=== PATIENT | male | born 1965 | race Caucasian/White ===

== ENCOUNTER 2017-05-07 12:09 | Emergency (ER) | payer MEDICAID ==
[2017-05-07 12:20] VITALS: BP 144/82; PULSE 83; RESP 18; TEMP 97.6
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
[2017-05-07 13:53] LABS: Appearance,Urine Cloudy (Clear); Bacteria,Urine Rare /hpf; Bilirubin,Urine Negative (Negative); Glucose,Urine (UA) Negative (Negative); Ketones,Urine Negative (Negative); Leukocyte Esterase,Urine Negative (Negative); Mucus,Urine Many /hpf; Nitrite,Urine Negative (Negative); Particle Count 11492; Protein,Urine Negative (Negative); RBC,Urine >182 /hpf (0-5); Specific Gravity,Urine 1.012 (1.001-1.035); UA Billing (MACRO vs. MICRO) MICRO; Uric Acid Crystals,Urine Occasional /hpf; WBC,Urine 38 /hpf (0-5)
[2017-05-07 14:05] LABS: INR 1.3 (<1.2); Partial Thromboplastin Time 25.8 sec (22.0-30.0); Prothrombin Time 12.5 sec (9.0-12.0)
[2017-05-07 14:07] LABS: Calcium 9.5 mg/dL (8.4-10.2); Potassium 4.6 mmol/L (3.5-5.1); Total Bilirubin 3.1 mg/dL (0.2-1.3); Total Protein 8.2 g/dL (6.3-8.2)
--- NOTE | 2017-05-07 14:12 | CT ---
EXAMINATION TYPE: CT abdomen pelvis wo con DATE OF EXAM: 05/07/2017 COMPARISON: 03/17/2016 HISTORY: hematuria, stone history CT DLP: 1167 mGycm Automated exposure control for dose reduction was used. TECHNIQUE: Helical acquisition of images was performed from the lung bases through the pelvis. FINDINGS: LUNG BASES: Subsegmental consolidation at both lung bases most atelectasis. LIVER/GB: Gallbladder appears distended measures 9 cm with no definite calcifications. Correlate clin ically. Liver extends across the left abdomen and superior to the spleen and is somewhat hypoattenuat ing suggestive of fatty infiltration. PANCREAS: No significant abnormality is seen. SPLEEN: Calcification along the peripheral remnant of the upper margin of the spleen.. ADRENALS: No significant abnormality is seen. KIDNEYS: Stable solid exophytic lesion interpolar region left kidney measures 1.4 cm versus 1.4 cm pr eviously. Hounsfield unit measurement is hyperdense no additional solid renal lesions identified. Sub centimeter right renal cysts noted totaling approximately 3 in number. No hydronephrosis. 2 mm nonobs tructing calculus lower pole right kidney. There also is a larger infundibular calcification involvin g the lower pole measuring 1 cm. Urinary bladder grossly unremarkable. URINARY BLADDER: No significant abnormality is seen. ADENOPATHY: None visualized. OSSEOUS STRUCTURES: No significant abnormality is seen. BOWEL: Degenerative change of the spine. OTHER: Fat-containing inguinal hernias are seen bilaterally. Aorta of normal caliber with atheroscler otic changes. IMPRESSION: 1. There is a 1.4 cm hyperdense lesion extending exophytically off the left kidney stable size relati ve the previous exam. May represent hemorrhagic cyst. Other etiologies including solid neoplasm not e xcluded by noncontrast technique. 2. Right-sided nonobstructing nephrolithiasis. 3. Gallbladder hydrops measuring 9 cm with no definite stone or biliary obstruction. Correlate clinic ally. 4. Liver is prominent in size but stable and findings suggestive of fatty infiltration. Correlate cli nically.
[2017-05-07 14:15] LABS: Basophils # (A) 0.1 k/uL (0-0.2); Basophils % (A) 1 %; CH 32.5; CHCM 32.2; Eosinophils # (A) 0.1 k/uL (0-0.7); Eosinophils % (A) 2 %; HCT 45.4 % (39.0-53.0); HDW 2.02; HGB 14.3 gm/dL (13.0-17.5); Luc # (Auto) 0.15; Luc % (Auto) 2; Lymphocytes # (A) 1.3 k/uL (1.0-4.8); Lymphocytes % (A) 20 %; MCH 31.9 pg (25.0-35.0); MCHC 31.4 g/dL (31.0-37.0); MCV 101.6 fL (80.0-100.0); Macrocytosis Slight; Mean Platelet Volume 8.3; Monocytes # (A) 0.4 k/uL (0-1.0); Monocytes % (A) 6 %; Neutrophils # (A) 4.5 k/uL (1.3-7.7); Neutrophils % (A) 69 %; RBC 4.46 m/uL (4.30-5.90); WBC 6.5 k/uL (3.8-10.6); WBC (Perox) 6.14
== END 2017-05-07 15:10 | disposition home or self-care (01) ==
LOC: EC 12:09
DX: N28.9 Disorder of kidney and ureter, unspecified (principal); R31.9 Hematuria, unspecified; R10.31 Right lower quadrant pain; E11.9 Type 2 diabetes mellitus without complications; I10 Essential (primary) hypertension; F17.200 Nicotine dependence, unspecified, uncomplicated; Z79.84 Long term (current) use of oral hypoglycemic drugs; Z79.899 Other long term (current) drug therapy
CPT/HCPCS: 36415; 74176; 80053; 81001; 82150; 83690; 85025; 85610; 85730; 87086; 99284

== ENCOUNTER → 2017-06-15 | Outpatient (CLI) | payer MEDICAID ==
--- NOTE | 2017-06-15 15:44 | US ---
EXAMINATION TYPE: US gallbladder DATE OF EXAM: 06/15/2017 COMPARISON: CT CLINICAL HISTORY: R94.5 Elevated Liver Enzymes. Elevated liver enzymes, history of kidney stones EXAM MEASUREMENTS: Liver Length: 17.4 cm Gallbladder Wall: 0.3 cm CBD: 0.4 cm Right Kidney: 11.8 x 6.0 x 6.3 cm Pancreas: obscured by overlying midline bowel gas Liver: measures in upper limits of normal at 17.4cm, heterogeneous without any definite lesions seen at this time, scanned intercostally, limited by rib shadowing . This finding limits evaluation for u nderlying hepatic masses. Gallbladder: Enlarged but anechoic measuring at least 13.1cm Evidence for sonographic Cates's sign: no CBD: wnl Right Kidney: 1.0cm echogenic focus inferior pole IMPRESSION: 1. Hydropic gallbladder measuring at least 13.1 cm. HIDA scan with CCK is recommended to evaluate for acute cholecystitis, chronic cholecystitis, or biliary dyskinesia. Bile duct is within normal limits at this time with no evidence of pericholecystic fluid or gallbladder wall thickening to support cur rent acute cholecystitis. 2. Coarsened hyperechoic hepatic echotexture, most commonly relating to hepatic steatosis, at least m oderate in degree.
== END | disposition home or self-care (01) ==
LOC: RADUSWWP 14:36
PROVIDERS: ATTEND Surgery
DX: R93.2 Abnormal findings on diagnostic imaging of liver and biliary tract (principal)
CPT/HCPCS: 76705

== ENCOUNTER 2017-09-26 11:32 | Inpatient (IN) | payer MEDICAID ==
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
--- NOTE | 2017-09-26 12:08 | XR ---
EXAMINATION TYPE: XR chest 2V DATE OF EXAM: 09/26/2017 COMPARISON: 09/06/2017 HISTORY: Shortness of breath TECHNIQUE: Frontal and lateral views of the chest are obtained. FINDINGS: Scattered senescent parenchymal changes noted. Hyperinflation compatible with COPD. Stable right lower lobe density. This may reflect atelectasis, scar or infiltrate. Continued follow-u p until resolution is advised. Heart size is stable. Mediastinal structures are stable and grossly unremarkable. No evidence for hilar prominence. Degenerative changes dorsal spine. IMPRESSION: 1. Stable right lower lobe density. This may reflect atelectasis, scar or infiltrate. Continued follo w-up until resolution is advised.
[2017-09-26 12:17] LABS: Albumin 2.9 g/dL (3.5-5.0); Calcium 8.5 mg/dL (8.4-10.2); Magnesium 2.2 mg/dL (1.6-2.3)
[2017-09-26 12:40] LABS: Anisocytosis Slight; Basophils # (A) 0.1 k/uL (0-0.2); Basophils % (A) 0 %; Eosinophils # (A) 0.1 k/uL (0-0.7); Eosinophils % (A) 1 %; HCT 45.9 % (39.0-53.0); HGB 15.1 gm/dL (13.0-17.5); Lymphocytes # (A) 0.3 k/uL (1.0-4.8); Lymphocytes % (A) 2 %; MCV 93.9 fL (80.0-100.0); Monocytes # (A) 0.6 k/uL (0-1.0); Monocytes % (A) 4 %; Neutrophils # (A) 13.3 k/uL (1.3-7.7); Neutrophils % (A) 92 %; RBC 4.88 m/uL (4.30-5.90); RDW 17.6 % (11.5-15.5); WBC 14.5 k/uL (3.8-10.6)
[2017-09-26 12:50] LABS: Target Cells Present
[2017-09-26 12:51] LABS: Platelet Count 95 k/uL (150-450); Poikilocytosis (M) Present
[2017-09-26 12:55] LABS: Total Bilirubin 37.6 mg/dL (0.2-1.3)
[2017-09-26 12:56] LABS: INR 2.1 (<1.2); Partial Thromboplastin Time 35.8 sec (22.0-30.0); Prothrombin Time 19.1 sec (9.0-12.0)
[2017-09-26 13:18] LABS: Appearance,Urine Clear (Clear); Bacteria,Urine Occasional /hpf; Bilirubin,Urine 3+ (Negative); Blood,Urine Moderate (Negative); Color,Urine Dark Yellow; Glucose,Urine (UA) Negative (Negative); Ketones,Urine Negative (Negative); Leukocyte Esterase,Urine Negative (Negative); Mucus,Urine Rare /hpf; Nitrite,Urine Negative (Negative); Protein,Urine Negative (Negative); RBC,Urine 1 /hpf (0-5); Specific Gravity,Urine 1.007 (1.001-1.035); Urobilinogen,Urine <2.0 mg/dL (<2.0); WBC,Urine 26 /hpf (0-5)
[2017-09-26] MEDS ORDERED: MORPHINE SULFATE 5 MG/ML SYRINGE IV PRN (13:27)
[2017-09-26] MEDS ORDERED: ONDANSETRON 4 MG/2 ML VIAL IVP PRN (13:27)
[2017-09-26] MEDS ORDERED: NALOXONE 0.4 MG/ML 1 ML VIAL IV PRN (13:27)
[2017-09-26] MEDS ORDERED: POTASSIUM CHLORIDE ORAL LIQUID 40 MEQ/30 ML CUP PO ONE (13:30)
[2017-09-26] MEDS ORDERED: PHYTONADIONE 10 MG in SODIUM CHLORIDE 0.9% 50 ML IVPB STA (16:55)
[2017-09-26] MEDS ORDERED: SODIUM CHLORIDE 0.9% 500 ML IV ONE (16:56)
--- NOTE | 2017-09-26 17:08 | P.HPIM ---
History of Present Illness Patient is a 52-year-old gentleman with came in with compensative generalized weakness and gurgling cough chest x-ray did not show any pneumonic process did show atelectasis. Patient denied any fever chills patient was having's some similar symptoms consistent with ALLERGIC sinusitis. Patient is being admitted today because of acute renal dysfunction patient has alcoholic cirrhosis patient was recently discharged from the hospital around [facility] after he was treated for acute alcoholic hepatitis was discharged on Lasix comes with elevated creatinine going up to around 4.5 baseline during his last discharge was around 2 patient does have distended abdomen much more worse patient has highly elevated bilirubin of 36 with elevated liver enzymes. Patient is hyponatremic as well secondary to severe intravascular depletion third spacing of fluids. Patient will need therapy paracentesis INR is around 2 we'll give him fresh frozen plasma vitamin K order ultrasound guided paracentesis tomorrow and patient will be given IV fluids in spite of for ascites because of severe intravascular volume depletion and prerenal azotemia, hypokalemia. Diuretics will be held Review of Systems REVIEW OF SYSTEMS: CONSTITUTIONAL: Severe generalized fatigue HEENT: No recent visual problems or hearing problems. Denied any sore throat. CARDIOVASCULAR: No chest pain, orthopnea, PND, no palpitations, no syncope. PULMONARY: No shortness of breath,, no hemoptysis. GASTROINTESTINAL: No diarrhea, no nausea, no vomiting, no abdominal pain. Normoactive bowel sounds. NEUROLOGICAL: No headaches, no weakness, no numbness. HEMATOLOGICAL: Denies any bleeding or petechiae. GENITOURINARY: Denies any burning micturition, frequency, or urgency. MUSCULOSKELETAL/RHEUMATOLOGICAL: Denies any joint pain, swelling, or any muscle pain. ENDOCRINE: Denies any polyuria or polydipsia. The rest of the 14-point review of systems is negative. Past Medical History Past Medical History: Cancer, Diabetes Mellitus, GERD/Reflux, Hypertension, Liver Disease, Osteoarthritis (OA), Pneumonia, Renal Disease Additional Past Medical History / Comment(s): Liver failure/ascities, ETOH abuse , R kidney cancer with tumor removal, NIDDM type II-currently off diabetic medication d/t liver failure, past splen laceration. History of Any Multi-Drug Resistant Organisms: None Reported Past Surgical History: Orthopedic Surgery Additional Past Surgical History / Comment(s): rt kidney tumor, lleft knee acl tear sx Past Anesthesia/Blood Transfusion Reactions: No Reported Reaction Smoking Status: Former smoker - Past Family History Father Family Medical History: Diabetes Mellitus, Hypertension Mother Family Medical History: Hypertension Medications and Allergies Home Medications Medication Instructions Recorded Confirmed Type Furosemide [Lasix] 40 mg PO BID #60 tablet 09/09/17 09/26/17 Rx Potassium Chloride ER [K-Dur 20] 20 meq PO DAILY #30 tab 09/09/17 09/26/17 Rx HYDROmorphone HCL [Dilaudid] 4 mg PO Q4H PRN 09/26/17 09/26/17 History Allergies Allergy/AdvReac Type Severity Reaction Status Date / Time No Known Allergies Allergy Verified 09/26/17 13:03 Physical Exam Vitals: Vital Signs Temp Pulse Resp BP Pulse Ox 09/26/17 15:20 91 20 122/58 99 09/26/17 13:50 101 H 22 148/95 96 09/26/17 12:57 95 18 155/77 94 L 09/26/17 11:46 97.8 F 96 18 144/75 95 Intake and Output 09/26/17 09/26/17 09/26/17 06:59 14:59 22:59 Other: Weight 108.862 kg Patient Weight 09/27/17 06:59 Weight 108.862 kg PHYSICAL EXAMINATION: GENERAL: The patient is alert and oriented x3, not in any acute distress. Well developed, well nourished. Yellowish discoloration of skin HEENT: Pupils are round and equally reacting to light. EOMI. patient does have scleral icterus. No conjunctival pallor. Normocephalic, atraumatic. No pharyngeal erythema. No thyromegaly. CARDIOVASCULAR: S1 and S2 present. No murmurs, rubs, or gallops. PULMONARY: Chest is clear to auscultation, no wheezing or crackles. ABDOMEN: Distended with shifting dullness without any abdominal tenderness unable to appreciate any organomegaly MUSCULOSKELETAL: No joint swelling or deformity. EXTREMITIES: No cyanosis, clubbing, or pedal edema. NEUROLOGICAL: Gross neurological examination did not reveal any focal deficits. SKIN: No rashes. Results CBC & Chem 7: 09/26/17 11:40 09/26/17 11:40 Labs: Abnormal Lab Results - Last 24 Hours (Table) 09/26/17 09/26/17 09/26/17 Range/Units 11:40 11:40 11:40 WBC 14.5 H (3.8-10.6) k/uL RDW 17.6 H (11.5-15.5) % Plt Count 95 L D (150-450) k/uL Neutrophils # 13.3 H (1.3-7.7) k/uL Lymphocytes # 0.3 L (1.0-4.8) k/uL PT 19.1 H (9.0-12.0) sec INR 2.1 H (<1.2) APTT 35.8 H (22.0-30.0) sec Sodium 131 L (137-145) mmol/L Potassium 3.0 L* (3.5-5.1) mmol/L Chloride 89 L (98-107) mmol/L BUN 123 H* (9-20) mg/dL Creatinine 4.13 H (0.66-1.25) mg/dL Glucose 190 H (74-99) mg/dL Total Bilirubin 37.6 H* (0.2-1.3) mg/dL AST 499 H (17-59) U/L ALT 337 H (21-72) U/L Alkaline Phosphatase 217 H (38-126) U/L Albumin 2.9 L (3.5-5.0) g/dL Amylase 154 H (30-110) U/L Lipase 670 H (23-300) U/L Urine Blood (Negative) Urine Bilirubin (Negative) Urine WBC (0-5) /hpf Urine Bacteria (None) /hpf Urine Mucus (None) /hpf 09/26/17 Range/Units 12:49 WBC (3.8-10.6) k/uL RDW (11.5-15.5) % Plt Count (150-450) k/uL Neutrophils # (1.3-7.7) k/uL Lymphocytes # (1.0-4.8) k/uL PT (9.0-12.0) sec INR (<1.2) APTT (22.0-30.0) sec Sodium (137-145) mmol/L Potassium (3.5-5.1) mmol/L Chloride (98-107) mmol/L BUN (9-20) mg/dL Creatinine (0.66-1.25) mg/dL Glucose (74-99) mg/dL Total Bilirubin (0.2-1.3) mg/dL AST (17-59) U/L ALT (21-72) U/L Alkaline Phosphatase (38-126) U/L Albumin (3.5-5.0) g/dL Amylase (30-110) U/L Lipase (23-300) U/L Urine Blood Moderate H (Negative) Urine Bilirubin 3+ H (Negative) Urine WBC 26 H (0-5) /hpf Urine Bacteria Occasional H (None) /hpf Urine Mucus Rare H (None) /hpf Thrombosis Risk Factor Assmnt - Choose All That Apply Any of the Below Risk Factors Present?: Yes Each Factor Represents 1 point: Age 41-60 years Other Risk Factors: Yes Each Risk Factor Represents 2 Points: Malignancy Other congenital or acquired thrombophilia - If yes, enter type in comment: No Thrombosis Risk Factor Assessment Total Risk Factor Score: 3 Thrombosis Risk Factor Assessment Level: Moderate Risk Assessment and Plan Plan: -Acute renal failure: Secondary to prerenal azotemia there may be a competent of hepatorenal syndrome urinary's random sodium and urine random creatinine was ordered and patient's diuretic therapy will be held patient was given gentle hydration nephrology and gastroneurology was consulted patient does have symptoms of lightheadedness. -Leukocytosis: Reactive I didn't see any pneumonia at this time. -Hyponatremia: Hypervolemic hyponatremia and severe intravascular 1 and patient contributed to decreased kidney perfusion leading to hyponatremia. -Hypokalemia secondary to Lasix which will be held IV fluid resuscitation as mentioned above -Elevated liver enzymes secondary to cirrhosis along with a competent of alcoholic hepatitis -Minimal elevation of lipase nonspecific -Coagulopathy secondary to liver disease patient will be given 10 mg of IV vitamin K and fresh frozen plasma as patient will require therapeutic paracentesis tomorrow
[2017-09-26] MEDS: SODIUM CHLORIDE 0.9% 1,000 ML IV SCH (17:27)
[2017-09-26] MEDS: FAMOTIDINE 20 MG TAB PO SCH (20:37)
[2017-09-27 08:32] LABS: Anisocytosis Slight; HCT 39.7 % (39.0-53.0); HGB 13.3 gm/dL (13.0-17.5); MCH 31.4 pg (25.0-35.0); MCHC 33.5 g/dL (31.0-37.0); MCV 93.6 fL (80.0-100.0); Mean Platelet Volume 10.2; RBC 4.24 m/uL (4.30-5.90); RDW 18.3 % (11.5-15.5); WBC 14.4 k/uL (3.8-10.6)
[2017-09-27 08:35] LABS: Albumin 2.5 g/dL (3.5-5.0); Potassium 3.3 mmol/L (3.5-5.1); Total Protein 6.1 g/dL (6.3-8.2)
[2017-09-27 08:36] LABS: Platelet Count 86 k/uL (150-450)
[2017-09-27 08:47] LABS: Total Bilirubin 35.4 mg/dL (0.2-1.3)
[2017-09-27 08:57] LABS: INR 1.9 (<1.2); Prothrombin Time 17.3 sec (9.0-12.0)
[2017-09-27] MEDS: POTASSIUM CHLORIDE ER 20 MEQ TAB.ER PO SCH (09:18)
[2017-09-27] MEDS: SODIUM CHLORIDE 0.9% 1,000 ML IV SCH ×2 (09:18→17:02)
[2017-09-27] MEDS: FAMOTIDINE 20 MG TAB PO SCH (09:18)
[2017-09-27] MEDS ORDERED: LACTULOSE 20 GM/30 ML CUP PO STA (11:04)
--- NOTE | 2017-09-27 11:24 | P.CONS ---
History of Present Illness - Reason for Consult Consult date: 09/27/17 Liver failure Requesting physician: Fred Claire - History of Present Illness 52-year-old gentleman with a history of long-standing EtOH abuse with underlying alcohol liver disease suspected cirrhosis recently hospitalized a month ago with severe alcohol hepatitis discharged on . He was prescribed prednisone therapy daily however he states after 2 weeks of therapy he ran out of his medication. He returns to the hospital with worsening jaundice fatigue malaise generalized discomfort abdominal distention. He was drinking 1-2 pints of liquor on a daily basis recently but says he's quit. Denies active drinking. No reports of hematemesis hematochezia melena. No fevers. Urinating without difficulty. Hepatitis screen last month nonreactive. AFP July 2016 was 9.2. Admission white count 14.5. Hemoglobin 15.1. Platelet 95,000. INR 2.1. Total bilirubin 37.6. AST 499. ALT 337. Alkaline phosphatase 217. Ammonia 57. Lipase 670. Amylase 154. Glucose 190. BUN 123. Creatinine 4.1. Having K FFP infuse repeat PT/INR this morning is 1.9. Creatinine 3.8. Total bilirubin 35.4. Ammonia increased to 117. 09/06/2017 ultrasound abdomen nonspecific hepatic steatosis with gallbladder wall thickening hydrops immobile sludge. CBD 0.4 cm. Liver length 17.6 cm. Review of Systems Constitutional: Denies fever, chills, sweats, weight gain, or loss. HEENT: Negative for migraines, blurred vision or loss, earaches, drainage, tinnitus, oral mucosal lesions, dysphagia, or odynophagia. Cardiac: Negative for chest pain, arrhythmias, or palpitation. Respiratory: Negative for shortness of breath, hemoptysis, cough, or sputum production. Gastrointestinal: See HPI for pertinent findings. Genitourinary: Negative for hematuria, urgency, frequency, polyuria, dysuria, or penile discharge. Musculoskeletal: Negative for muscle aches, swelling, arthritis, and arthralgias. Neurologic: Negative for stroke or TIA. Endocrine: Negative for thyroid problems. Skin: Negative for rash or itching. Psychiatric: Negative history for depression and anxiety Past Medical History Past Medical History: Cancer, Diabetes Mellitus, GERD/Reflux, Hypertension, Liver Disease, Osteoarthritis (OA), Pneumonia, Renal Disease Additional Past Medical History / Comment(s): Liver failure/ascities, ETOH abuse , R kidney cancer with tumor removal, NIDDM type II-currently off diabetic medication d/t liver failure, past splen laceration. History of Any Multi-Drug Resistant Organisms: None Reported Past Surgical History: Orthopedic Surgery Additional Past Surgical History / Comment(s): rt kidney tumor, lleft knee acl tear sx Past Anesthesia/Blood Transfusion Reactions: No Reported Reaction Smoking Status: Former smoker - Past Family History Father Family Medical History: Diabetes Mellitus, Hypertension Mother Family Medical History: Hypertension Medications and Allergies Home Medications Medication Instructions Recorded Confirmed Type Furosemide [Lasix] 40 mg PO BID #60 tablet 09/09/17 09/26/17 Rx Potassium Chloride ER [K-Dur 20] 20 meq PO DAILY #30 tab 09/09/17 09/26/17 Rx HYDROmorphone HCL [Dilaudid] 4 mg PO Q4H PRN 09/26/17 09/26/17 History Allergies Allergy/AdvReac Type Severity Reaction Status Date / Time No Known Allergies Allergy Verified 09/26/17 13:03 Physical Exam Vitals: Vital Signs Temp Pulse Pulse Resp BP BP Pulse Ox 09/27/17 07:00 97 F L 100 18 111/69 95 09/26/17 23:45 93 09/26/17 23:43 98.2 F 93 20 112/56 95 09/26/17 23:00 92 09/26/17 21:52 96 20 123/70 94 L 09/26/17 21:22 97.7 F 95 16 119/69 96 09/26/17 21:12 97.6 F 95 16 124/77 09/26/17 20:55 97.4 F L 95 128/73 96 09/26/17 17:34 97.6 F 92 20 136/74 97 09/26/17 15:20 91 20 122/58 99 09/26/17 13:50 101 H 22 148/95 96 09/26/17 12:57 95 18 155/77 94 L 09/26/17 11:46 97.8 F 96 18 144/75 95 Intake and Output 09/26/17 09/27/17 09/27/17 22:59 06:59 14:59 Intake Total 1300 310 800 Output Total 500 1 Balance 800 309 800 Intake: Intake, IV Titration 1300 Amount Sodium Chloride 0.9% 1, 800 000 ml @ 100 mls/hr IV . Q10H ADRIEL Rx#:[id number] Sodium Chloride 0.9% 500 500 ml @ 999 mls/hr IV .Q31M ONE Rx#:[id number] Oral 800 Blood Product 0 310 Ffp 24 Cpd Unit 0 310 [id number] Output: Urine 500 Stool 1 Other: Voiding Method Bedside Commode Bedside Commode Urinal Urinal # Voids 2 1 # Bowel Movements 1 General appearance: The patient is alert, oriented, in no acute distress. Appears disheveled uncapped poor hygiene. Visibly jaundice. Weak appearance. HET: Head is normocephalic and atraumatic. Pupils are equal and reactive. Oropharynx is clear without lesions. Sclerae are icteric. Neck: Supple without lymphadenopathy. Trachea midline. Heart: S1 S2. Regular rate and rhythm. Lungs: No crackles or wheezes are heard. Abdomen: Soft, distended with ascites difficult to ascertain secondary to large abdominal girth with bowel sounds. No peritoneal signs. No palpable organomegaly or masses. Extremities: Normal skin color and turgor. No cyanosis, rash, ulceration, clubbing, or edema. Radial and pedal pulses are 2/4 bilaterally. Bilateral palmar erythema. No asterixis. Neurological: No focal deficits. Strength and sensation are grossly intact. Results CBC & Chem 7: 09/28/17 07:19 09/28/17 07:19 Labs: Abnormal Lab Results - Last 24 Hours (Table) 09/26/17 09/26/17 09/26/17 Range/Units 11:40 11:40 11:40 WBC 14.5 H (3.8-10.6) k/uL RBC (4.30-5.90) m/uL RDW 17.6 H (11.5-15.5) % Plt Count 95 L D (150-450) k/uL Neutrophils # 13.3 H (1.3-7.7) k/uL Lymphocytes # 0.3 L (1.0-4.8) k/uL PT 19.1 H (9.0-12.0) sec INR 2.1 H (<1.2) APTT 35.8 H (22.0-30.0) sec Sodium 131 L (137-145) mmol/L Potassium 3.0 L* (3.5-5.1) mmol/L Chloride 89 L (98-107) mmol/L BUN 123 H* (9-20) mg/dL Creatinine 4.13 H (0.66-1.25) mg/dL Glucose 190 H (74-99) mg/dL Calcium (8.4-10.2) mg/dL Total Bilirubin 37.6 H* (0.2-1.3) mg/dL AST 499 H (17-59) U/L ALT 337 H (21-72) U/L Alkaline Phosphatase 217 H (38-126) U/L Ammonia (<30) umol/L Total Protein (6.3-8.2) g/dL Albumin 2.9 L (3.5-5.0) g/dL Amylase 154 H (30-110) U/L Lipase 670 H (23-300) U/L Urine Blood (Negative) Urine Bilirubin (Negative) Urine WBC (0-5) /hpf Urine Bacteria (None) /hpf Urine Mucus (None) /hpf Ur Random Sodium (30-90) mmol/L 09/26/17 09/26/17 09/26/17 Range/Units 12:49 16:54 17:07 WBC (3.8-10.6) k/uL RBC (4.30-5.90) m/uL RDW (11.5-15.5) % Plt Count (150-450) k/uL Neutrophils # (1.3-7.7) k/uL Lymphocytes # (1.0-4.8) k/uL PT (9.0-12.0) sec INR (<1.2) APTT (22.0-30.0) sec Sodium (137-145) mmol/L Potassium (3.5-5.1) mmol/L Chloride (98-107) mmol/L BUN (9-20) mg/dL Creatinine (0.66-1.25) mg/dL Glucose (74-99) mg/dL Calcium (8.4-10.2) mg/dL Total Bilirubin (0.2-1.3) mg/dL AST (17-59) U/L ALT (21-72) U/L Alkaline Phosphatase (38-126) U/L Ammonia 57 H (<30) umol/L Total Protein (6.3-8.2) g/dL Albumin (3.5-5.0) g/dL Amylase (30-110) U/L Lipase (23-300) U/L Urine Blood Moderate H (Negative) Urine Bilirubin 3+ H (Negative) Urine WBC 26 H (0-5) /hpf Urine Bacteria Occasional H (None) /hpf Urine Mucus Rare H (None) /hpf Ur Random Sodium 25 L (30-90) mmol/L 09/27/17 09/27/17 09/27/17 Range/Units 07:39 07:39 07:39 WBC 14.4 H (3.8-10.6) k/uL RBC 4.24 L (4.30-5.90) m/uL RDW 18.3 H (11.5-15.5) % Plt Count 86 L (150-450) k/uL Neutrophils # (1.3-7.7) k/uL Lymphocytes # (1.0-4.8) k/uL PT 17.3 H (9.0-12.0) sec INR 1.9 H (<1.2) APTT (22.0-30.0) sec Sodium 132 L (137-145) mmol/L Potassium 3.3 L (3.5-5.1) mmol/L Chloride 93 L (98-107) mmol/L BUN 120 H* (9-20) mg/dL Creatinine 3.82 H (0.66-1.25) mg/dL Glucose 174 H (74-99) mg/dL Calcium 8.0 L (8.4-10.2) mg/dL Total Bilirubin 35.4 H* (0.2-1.3) mg/dL AST 362 H (17-59) U/L ALT 267 H (21-72) U/L Alkaline Phosphatase 169 H (38-126) U/L Ammonia (<30) umol/L Total Protein 6.1 L (6.3-8.2) g/dL Albumin 2.5 L (3.5-5.0) g/dL Amylase (30-110) U/L Lipase (23-300) U/L Urine Blood (Negative) Urine Bilirubin (Negative) Urine WBC (0-5) /hpf Urine Bacteria (None) /hpf Urine Mucus (None) /hpf Ur Random Sodium (30-90) mmol/L 09/27/17 Range/Units 08:10 WBC (3.8-10.6) k/uL RBC (4.30-5.90) m/uL RDW (11.5-15.5) % Plt Count (150-450) k/uL Neutrophils # (1.3-7.7) k/uL Lymphocytes # (1.0-4.8) k/uL PT (9.0-12.0) sec INR (<1.2) APTT (22.0-30.0) sec Sodium (137-145) mmol/L Potassium (3.5-5.1) mmol/L Chloride (98-107) mmol/L BUN (9-20) mg/dL Creatinine (0.66-1.25) mg/dL Glucose (74-99) mg/dL Calcium (8.4-10.2) mg/dL Total Bilirubin (0.2-1.3) mg/dL AST (17-59) U/L ALT (21-72) U/L Alkaline Phosphatase (38-126) U/L Ammonia 117 H (<30) umol/L Total Protein (6.3-8.2) g/dL Albumin (3.5-5.0) g/dL Amylase (30-110) U/L Lipase (23-300) U/L Urine Blood (Negative) Urine Bilirubin (Negative) Urine WBC (0-5) /hpf Urine Bacteria (None) /hpf Urine Mucus (None) /hpf Ur Random Sodium (30-90) mmol/L Assessment and Plan (1) Alcoholic hepatitis with ascites Narrative/Plan: Severe alcohol hepatitis and MDF score 70. Current Visit: Yes Status: Acute Code(s): K70.11 - ALCOHOLIC HEPATITIS WITH ASCITES SNOMED Code(s): 741351705 (2) Kidney failure Current Visit: Yes Status: Acute Code(s): N19 - UNSPECIFIED KIDNEY FAILURE SNOMED Code(s): 09533631 (3) Pancreatitis Current Visit: Yes Status: Acute Code(s): K85.90 - ACUTE PANCREATITIS WITHOUT NECROSIS OR INFECTION, UNSP SNOMED Code(s): 78545830 (4) Alcoholic cirrhosis of liver Current Visit: No Status: Acute Code(s): K70.30 - ALCOHOLIC CIRRHOSIS OF LIVER WITHOUT ASCITES SNOMED Code(s): 162806841 (5) Coagulopathy Current Visit: No Status: Acute Code(s): D68.9 - COAGULATION DEFECT, UNSPECIFIED SNOMED Code(s): 01501405 (6) Thrombocytopenia Current Visit: No Status: Acute Code(s): D69.6 - THROMBOCYTOPENIA, UNSPECIFIED SNOMED Code(s): 083019475 (7) Acute hepatic encephalopathy Current Visit: Yes Status: Acute Code(s): K72.00 - ACUTE AND SUBACUTE HEPATIC FAILURE WITHOUT COMA SNOMED Code(s): 68574873 Plan: 1. Case was discussed with interventional radiologist Dr. Null and Dr. Guerra. We'll proceed with diagnostic therapeutic paracentesis today. We'll transfuse 2 units of FFP prior to procedure as well albumin. 2. Patient is not a corticosteroid candidate secondary to hepatic encephalopathy. Lactulose 20 g 4 times a day. Xifaxan 550 mg twice daily. 3. We'll defer to nephrology for diuretic management. 4. Overall prognosis is guarded if patient's clinical condition worsens will need to be transferred to a tertiary center for further evaluation. Thank you for this kind referral and the opportunity to participate in the care of your patient. This consultation was discussed with Dr. Guerra. The impression and plan of care have been directed as dictated.
--- NOTE | 2017-09-27 12:07 | P.PN ---
Progress Note - Text Progress Note Date: 09/27/17 Patient had a large bilious emesis. Ammonia level greater than 100. Case discussed with interventional radiology will postpone paracentesis and reevaluate in a.m. Nothing by mouth except indications ice chips popsicles. CT abdomen and pelvis without contrast.
--- NOTE | 2017-09-27 12:36 | P.PN ---
Subjective Patient was admitted secondary to acute renal failure patient does have cirrhosis, found to have hyperammonemia patient was started on lactulose. Paracentesis was postponed today. Patient had bilious emesis patient is getting 100 mL of IV fluid multiple consultants including gastroenterology and nephrology are following the patient. Patient tiredness and weakness did improve. Constitutional: As mentioned in HPI Cardio vascular: denied any chest pain, palpitations Gastrointestinal as mentioned in HPI Pulmonary: Denied any shortness of breath cough Neurologic denied any new focal deficits Objective - Vital Signs Vital signs: Vital Signs Temp 97 F L 09/27/17 07:00 Pulse 100 09/27/17 07:00 Resp 18 09/27/17 07:00 BP 111/69 09/27/17 07:00 Pulse Ox 95 09/27/17 07:00 Intake & Output 09/26/17 09/27/17 09/27/17 18:59 06:59 18:59 Intake Total 1610 800 Output Total 501 Balance 1109 800 Weight 108.862 kg Intake: Intake, IV Titration 1300 Amount Sodium Chloride 0.9% 1, 800 000 ml @ 100 mls/hr IV . Q10H [facility] Rx#:[id number] Sodium Chloride 0.9% 500 500 ml @ 999 mls/hr IV .Q31M ONE Rx#:[id number] Oral 800 Blood Product 310 Ffp 24 Cpd Unit 310 [id number] Output: Urine 500 Stool 1 Other: Voiding Method Bedside Commode Bedside Commode Urinal Urinal # Voids 1 # Bowel Movements 1 - Exam PHYSICAL EXAMINATION: GENERAL: The patient is alert and oriented x3, not in any acute distress. Well developed, well nourished. Yellowish discoloration of skin HEENT: Pupils are round and equally reacting to light. EOMI. patient does have scleral icterus. No conjunctival pallor. Normocephalic, atraumatic. No pharyngeal erythema. No thyromegaly. CARDIOVASCULAR: S1 and S2 present. No murmurs, rubs, or gallops. PULMONARY: Chest is clear to auscultation, no wheezing or crackles. ABDOMEN: Distended with shifting dullness without any abdominal tenderness unable to appreciate any organomegaly MUSCULOSKELETAL: No joint swelling or deformity. EXTREMITIES: No cyanosis, clubbing, or pedal edema. NEUROLOGICAL: Gross neurological examination did not reveal any focal deficits. SKIN: No rashes. - Labs CBC & Chem 7: 09/27/17 07:39 09/27/17 07:39 Labs: Abnormal Lab Results - Last 24 Hours (Table) 09/26/17 09/26/17 09/26/17 Range/Units 11:40 11:40 11:40 WBC 14.5 H (3.8-10.6) k/uL RBC (4.30-5.90) m/uL RDW 17.6 H (11.5-15.5) % Plt Count 95 L D (150-450) k/uL Neutrophils # 13.3 H (1.3-7.7) k/uL Lymphocytes # 0.3 L (1.0-4.8) k/uL PT 19.1 H (9.0-12.0) sec INR 2.1 H (<1.2) APTT 35.8 H (22.0-30.0) sec Sodium 131 L (137-145) mmol/L Potassium 3.0 L* (3.5-5.1) mmol/L Chloride 89 L (98-107) mmol/L BUN 123 H* (9-20) mg/dL Creatinine 4.13 H (0.66-1.25) mg/dL Glucose 190 H (74-99) mg/dL Calcium (8.4-10.2) mg/dL Total Bilirubin 37.6 H* (0.2-1.3) mg/dL AST 499 H (17-59) U/L ALT 337 H (21-72) U/L Alkaline Phosphatase 217 H (38-126) U/L Ammonia (<30) umol/L Total Protein (6.3-8.2) g/dL Albumin 2.9 L (3.5-5.0) g/dL Amylase 154 H (30-110) U/L Lipase 670 H (23-300) U/L Urine Blood (Negative) Urine Bilirubin (Negative) Urine WBC (0-5) /hpf Urine Bacteria (None) /hpf Urine Mucus (None) /hpf Ur Random Sodium (30-90) mmol/L 09/26/17 09/26/17 09/26/17 Range/Units 12:49 16:54 17:07 WBC (3.8-10.6) k/uL RBC (4.30-5.90) m/uL RDW (11.5-15.5) % Plt Count (150-450) k/uL Neutrophils # (1.3-7.7) k/uL Lymphocytes # (1.0-4.8) k/uL PT (9.0-12.0) sec INR (<1.2) APTT (22.0-30.0) sec Sodium (137-145) mmol/L Potassium (3.5-5.1) mmol/L Chloride (98-107) mmol/L BUN (9-20) mg/dL Creatinine (0.66-1.25) mg/dL Glucose (74-99) mg/dL Calcium (8.4-10.2) mg/dL Total Bilirubin (0.2-1.3) mg/dL AST (17-59) U/L ALT (21-72) U/L Alkaline Phosphatase (38-126) U/L Ammonia 57 H (<30) umol/L Total Protein (6.3-8.2) g/dL Albumin (3.5-5.0) g/dL Amylase (30-110) U/L Lipase (23-300) U/L Urine Blood Moderate H (Negative) Urine Bilirubin 3+ H (Negative) Urine WBC 26 H (0-5) /hpf Urine Bacteria Occasional H (None) /hpf Urine Mucus Rare H (None) /hpf Ur Random Sodium 25 L (30-90) mmol/L 09/27/17 09/27/17 09/27/17 Range/Units 07:39 07:39 07:39 WBC 14.4 H (3.8-10.6) k/uL RBC 4.24 L (4.30-5.90) m/uL RDW 18.3 H (11.5-15.5) % Plt Count 86 L (150-450) k/uL Neutrophils # (1.3-7.7) k/uL Lymphocytes # (1.0-4.8) k/uL PT 17.3 H (9.0-12.0) sec INR 1.9 H (<1.2) APTT (22.0-30.0) sec Sodium 132 L (137-145) mmol/L Potassium 3.3 L (3.5-5.1) mmol/L Chloride 93 L (98-107) mmol/L BUN 120 H* (9-20) mg/dL Creatinine 3.82 H (0.66-1.25) mg/dL Glucose 174 H (74-99) mg/dL Calcium 8.0 L (8.4-10.2) mg/dL Total Bilirubin 35.4 H* (0.2-1.3) mg/dL AST 362 H (17-59) U/L ALT 267 H (21-72) U/L Alkaline Phosphatase 169 H (38-126) U/L Ammonia (<30) umol/L Total Protein 6.1 L (6.3-8.2) g/dL Albumin 2.5 L (3.5-5.0) g/dL Amylase (30-110) U/L Lipase (23-300) U/L Urine Blood (Negative) Urine Bilirubin (Negative) Urine WBC (0-5) /hpf Urine Bacteria (None) /hpf Urine Mucus (None) /hpf Ur Random Sodium (30-90) mmol/L 09/27/17 Range/Units 08:10 WBC (3.8-10.6) k/uL RBC (4.30-5.90) m/uL RDW (11.5-15.5) % Plt Count (150-450) k/uL Neutrophils # (1.3-7.7) k/uL Lymphocytes # (1.0-4.8) k/uL PT (9.0-12.0) sec INR (<1.2) APTT (22.0-30.0) sec Sodium (137-145) mmol/L Potassium (3.5-5.1) mmol/L Chloride (98-107) mmol/L BUN (9-20) mg/dL Creatinine (0.66-1.25) mg/dL Glucose (74-99) mg/dL Calcium (8.4-10.2) mg/dL Total Bilirubin (0.2-1.3) mg/dL AST (17-59) U/L ALT (21-72) U/L Alkaline Phosphatase (38-126) U/L Ammonia 117 H (<30) umol/L Total Protein (6.3-8.2) g/dL Albumin (3.5-5.0) g/dL Amylase (30-110) U/L Lipase (23-300) U/L Urine Blood (Negative) Urine Bilirubin (Negative) Urine WBC (0-5) /hpf Urine Bacteria (None) /hpf Urine Mucus (None) /hpf Ur Random Sodium (30-90) mmol/L Assessment and Plan Plan: -Acute renal failure: Secondary to prerenal azotemia there may be a competent of hepatorenal syndrome urinary's random sodium 's 25 after IV fluids mostly has prerenal azotemia from diuretic therapy -Leukocytosis: Reactive I didn't see any pneumonia at this time. -Hyponatremia: Hypervolemic hyponatremia and severe intravascular 1 and patient contributed to decreased kidney perfusion leading to hyponatremia. -Hypokalemia secondary to Lasix which will be held IV fluid resuscitation as mentioned above -Elevated liver enzymes secondary to cirrhosis along with a competent of alcoholic hepatitis -Minimal elevation of lipase nonspecific -Coagulopathy secondary to liver disease patient will be given 10 mg of IV vitamin K and fresh frozen plasma as patient will require therapeutic paracentesis INR remains 1.9 after 10 mg of IV vitamin K patient also received fresh frozen plasma yesterday and today
--- NOTE | 2017-09-27 13:22 | CT ---
EXAMINATION TYPE: CT abdomen pelvis wo con DATE OF EXAM: 09/27/2017 COMPARISON: NONE HISTORY: Jaundice and abdominal distention CT DLP: 2017.10 mGycm Examination of the solid and hollow viscera is limited given the lack of contrast. FINDINGS: LUNG BASES: Basilar atelectasis and/or small infiltrates. Trace left-sided pleural effusion. LIVER/GB: Suggestion of micronodular appearance of the periphery of the liver may reflect cirrhotic l iver disease. No intrahepatic lesion is identified. There is gallbladder hydrops measuring 9.7 cm in greatest dimension with mild gallbladder wall thickening. Suggestion of intraluminal sludge. No defin ite intra-axial hepatic biliary ductal dilatation. There is recanalization of the umbilical vein. Lar ge amount of ascites is seen within the abdomen and pelvis. PANCREAS: No pancreatic mass identified. No inflammatory process seen. SPLEEN: Previously noted splenomegaly has improved at 15.2 cm previously versus 13.9 cm currently. No intrasplenic lesions seen. ADRENALS: No adrenal nodules identified. No evidence for thickening. KIDNEYS: No evidence for renal mass. Stable right-sided nephrolithiasis. No hydronephrosis. BOWEL: Appendix has a normal appearance. No evidence of bowel obstruction. No inflammatory process. Lymph nodes: No evidence for adenopathy greater than 1 cm. Abdominal aorta: Atheromatous changes seen. No evidence for aneurysm. Genital organs: No significant abnormality. Other: No significant abnormality. IMPRESSION: 1. Interval development of moderate to large amount of ascites throughout the abdomen and pelvis. Tra ce left sided pleural effusion. 2. Suggestion of a cirrhotic liver disease. Recanalization of the umbilical vein. 3. Gallbladder hydrops with sludge material noted. Minimal wall thickening suggested. 4. Stable nonobstructing right-sided nephrolithiasis.
--- NOTE | 2017-09-27 13:28 | CONS ---
CONSULTATION REASON FOR CONSULTATION: Renal failure. HISTORY OF PRESENT ILLNESS: The patient is a 52-year-old male who has a history of liver cirrhosis secondary to ETOH abuse. He was admitted to the hospital with increasing weakness and some shortness of breath as well. He was also complaining of increased abdominal distention. The patient's creatinine was 4.13 on admission. He is currently maintained on IV fluids. His creatinine is down to 3.82. Previous creatinine on 09/10/2017 was 1.18. The patient was maintained on diuretics which are currently on hold. His bilirubin is significantly elevated at 37.6. The patient is voiding. His random urine sodium was at 25. PAST MEDICAL HISTORY: Alcoholic liver cirrhosis, type 2 diabetes, obesity, gastroesophageal reflux disease, hypertension, history of right renal cancer, status post surgery for removal of tumor. On the CAT scan patient does have a solid lesion in the left kidney. No right renal lesions were noted. PAST SURGICAL HISTORY: Liver biopsy, left knee surgery. SOCIAL HISTORY: Patient is a former smoker. No history of drug abuse or alcohol abuse. MEDICATIONS: Medications at home include Lasix, potassium, Dilaudid. ALLERGIES: None. EXAMINATION: Patient is current currently comfortable. He is not in acute distress. Blood pressure is 111/69, heart rate 93 per minute. He is afebrile. Examination of the heart: S1, S2. Examination lungs: Bilateral breath sounds are heard. Abdomen is soft, nontender, distended. Obese with ascites. Examination lower extremity shows edema 2+ bilaterally. CLINICAL LABORATORY TECHNICIAN exam is grossly intact. LAB: Show sodium 132, potassium 3.3, chloride 93, BUN 120, serum creatinine 3.82, bilirubin 35.4, ammonia 117, albumin 2.5, UA shows moderate blood, no protein is noted. Random urine sodium was 25. ASSESSMENT: 1. Acute kidney injury, prerenal. Continue with IV fluids. Renal function has improved. Hold off on the diuretics for now. Recommend paracentesis but avoid large volume paracentesis, perhaps 2-3 L. Currently patient is not hypotensive and I will hold off on cocktail for hepatorenal syndrome. His random urine sodium was not low, which if it had been would go in favor of hepatorenal syndrome. 2. Alcoholic liver disease with severe hyperbilirubinemia and ascites. 3. Hypokalemia. Will replace. PLAN: Continue IV fluids and repeat labs in a.m. Hold off on diuretics for now. I recommend low volume paracentesis. Consider transfer to tertiary care center if no further improvement in the overall status. Thank you for this consultation. I will continue to follow the patient with you during hospitalization. MMROSALIAL / THALIAN: [id number] /
[2017-09-27 15:57] VITALS: BMI 35.4
[2017-09-27] MEDS: LACTULOSE 20 GM/30 ML CUP PO SCH ×3 (17:01→22:41)
[2017-09-28] MEDS: SODIUM CHLORIDE 0.9% 1,000 ML IV SCH ×3 (05:26→20:13)
[2017-09-28] MEDS ORDERED: LACTULOSE 20 GM/30 ML CUP PO ONE (07:00)
[2017-09-28 07:38] LABS: Anisocytosis Slight; Basophils # (A) 0.1 k/uL (0-0.2); Basophils % (A) 0 %; Eosinophils # (A) 0.2 k/uL (0-0.7); Eosinophils % (A) 2 %; HCT 42.2 % (39.0-53.0); HGB 13.6 gm/dL (13.0-17.5); Lymphocytes # (A) 0.4 k/uL (1.0-4.8); Lymphocytes % (A) 3 %; MCHC 32.3 g/dL (31.0-37.0); MCV 95.9 fL (80.0-100.0); Macrocytosis Slight; Mean Platelet Volume 9.5; Monocytes # (A) 0.6 k/uL (0-1.0); Monocytes % (A) 4 %; Neutrophils # (A) 12.5 k/uL (1.3-7.7); Neutrophils % (A) 91 %; RDW 18.7 % (11.5-15.5); WBC 13.8 k/uL (3.8-10.6)
[2017-09-28] MEDS: RIFAXIMIN 550 MG TABLET PO SCH ×2 (07:41→20:13)
[2017-09-28] MEDS: FAMOTIDINE 20 MG TAB PO SCH (07:41)
[2017-09-28] MEDS: POTASSIUM CHLORIDE ER 20 MEQ TAB.ER PO SCH (07:42)
[2017-09-28 07:47] LABS: Platelet Count 71 k/uL (150-450)
[2017-09-28 07:53] LABS: INR 1.9 (<1.2); Prothrombin Time 17.7 sec (9.0-12.0)
[2017-09-28 07:56] LABS: Albumin 2.5 g/dL (3.5-5.0); Calcium 8.2 mg/dL (8.4-10.2); Potassium 3.2 mmol/L (3.5-5.1); Total Protein 6.3 g/dL (6.3-8.2)
[2017-09-28 08:16] LABS: Total Bilirubin 37.3 mg/dL (0.2-1.3)
[2017-09-28] MEDS: LACTULOSE 20 GM/30 ML CUP PO SCH ×4 (09:35→23:03)
[2017-09-28] MEDS: ALBUMIN HUMAN 25% 50 ML in EMPTY BAG 1 BAG IVPB SCH ×4 (10:35→16:53)
--- NOTE | 2017-09-28 11:23 | P.PN ---
Subjective Progress Note Date: 09/28/17 Principal diagnosis: Severe alcohol hepatitis hepatorenal syndrome 52-year-old male with a history of long-standing alcohol abuse and it was severe alcohol hepatitis hepatorenal syndrome pancreatitis. Paracentesis canceled yesterday secondary large volume bilious emesis. CT scan abdomen and pelvis reported ascites. No obvious bowel pathology such as obstruction or free air. Patient received lactulose and Xifaxan yesterday for elevated ammonia level. Multiple episodes of diarrhea. This reports he tried to pull at his IV lines and blankets last night somewhat confused but not combative or belligerent. Ammonia improved decreased to 76. AFP 2.7. Lipase 714. Creatinine 3.7. Total bilirubin 37.3. Transaminases alkaline phosphatase relatively unchanged from yesterday. Afebrile. No further emesis. Paracentesis rescheduled for today. Patient receive FFP and albumin prior to/ post procedure. Objective - Vital Signs Vital signs: Vital Signs Temp 97.3 F L 09/28/17 07:00 Pulse 100 09/28/17 07:00 Resp 18 09/28/17 07:00 BP 136/80 09/28/17 07:00 Pulse Ox 95 09/28/17 08:54 Intake & Output 09/27/17 09/28/17 09/28/17 18:59 06:59 18:59 Intake Total 2850 1600 Output Total 251 Balance 2599 1600 Weight 108.862 kg Intake: IV 1600 Sodium Chloride 0.9% 1, 1600 000 ml @ 100 mls/hr IV . Q10H [facility] Rx#:[id number] Intake, IV Titration 800 Amount Sodium Chloride 0.9% 1, 800 000 ml @ 100 mls/hr IV . Q10H [facility] Rx#:[id number] Oral 2050 Output: Urine 250 Emesis 1 Other: Voiding Method Bedside Commode Bedside Commode Bedside Commode Urinal Urinal Urinal # Voids 3 # Bowel Movements 5 - Exam General appearance: The patient is alert, oriented, in no acute distress. Alert somewhat drowsy but appropriate. Visibly jaundice. HET: Head is normocephalic and atraumatic. Pupils are equal and reactive. Oropharynx is clear without lesions. Sclerae icterus. Neck: Supple without lymphadenopathy. Trachea midline. Heart: S1 S2. Regular rate and rhythm. Lungs: No crackles or wheezes are heard. Abdomen: Soft, distended with moderate ascites with bowel sounds. No peritoneal signs. No palpable organomegaly or masses. Extremities: Normal skin color and turgor. No cyanosis, rash, ulceration, clubbing, or edema. Radial and pedal pulses are 2/4 bilaterally. Neurological: No focal deficits. Strength and sensation are grossly intact. - Labs CBC & Chem 7: 09/28/17 07:19 09/28/17 07:19 Labs: Abnormal Lab Results - Last 24 Hours (Table) 09/28/17 09/28/17 09/28/17 Range/Units 07:19 07:19 07:19 WBC 13.8 H (3.8-10.6) k/uL RDW 18.7 H (11.5-15.5) % Plt Count 71 L (150-450) k/uL Neutrophils # 12.5 H (1.3-7.7) k/uL Lymphocytes # 0.4 L (1.0-4.8) k/uL PT 17.7 H (9.0-12.0) sec INR 1.9 H (<1.2) Sodium 132 L (137-145) mmol/L Potassium 3.2 L (3.5-5.1) mmol/L Chloride 95 L (98-107) mmol/L Carbon Dioxide 21 L (22-30) mmol/L BUN 118 H* (9-20) mg/dL Creatinine 3.71 H (0.66-1.25) mg/dL Glucose 175 H (74-99) mg/dL Calcium 8.2 L (8.4-10.2) mg/dL Total Bilirubin 37.3 H* (0.2-1.3) mg/dL AST 329 H (17-59) U/L ALT 262 H (21-72) U/L Alkaline Phosphatase 172 H (38-126) U/L Ammonia (<30) umol/L Albumin 2.5 L (3.5-5.0) g/dL Lipase 714 H (23-300) U/L 09/28/17 Range/Units 07:19 WBC (3.8-10.6) k/uL RDW (11.5-15.5) % Plt Count (150-450) k/uL Neutrophils # (1.3-7.7) k/uL Lymphocytes # (1.0-4.8) k/uL PT (9.0-12.0) sec INR (<1.2) Sodium (137-145) mmol/L Potassium (3.5-5.1) mmol/L Chloride (98-107) mmol/L Carbon Dioxide (22-30) mmol/L BUN (9-20) mg/dL Creatinine (0.66-1.25) mg/dL Glucose (74-99) mg/dL Calcium (8.4-10.2) mg/dL Total Bilirubin (0.2-1.3) mg/dL AST (17-59) U/L ALT (21-72) U/L Alkaline Phosphatase (38-126) U/L Ammonia 76 H (<30) umol/L Albumin (3.5-5.0) g/dL Lipase (23-300) U/L Assessment and Plan (1) Alcoholic hepatitis with ascites Narrative/Plan: Severe alcohol hepatitis and MDF score 70. Current Visit: Yes Status: Acute Code(s): K70.11 - ALCOHOLIC HEPATITIS WITH ASCITES SNOMED Code(s): 506862401 (2) Kidney failure Current Visit: Yes Status: Acute Code(s): N19 - UNSPECIFIED KIDNEY FAILURE SNOMED Code(s): 61041211 (3) Pancreatitis Current Visit: Yes Status: Acute Code(s): K85.90 - ACUTE PANCREATITIS WITHOUT NECROSIS OR INFECTION, UNSP SNOMED Code(s): 23348377 (4) Alcoholic cirrhosis of liver Current Visit: No Status: Acute Code(s): K70.30 - ALCOHOLIC CIRRHOSIS OF LIVER WITHOUT ASCITES SNOMED Code(s): 814482167 (5) Coagulopathy Current Visit: No Status: Acute Code(s): D68.9 - COAGULATION DEFECT, UNSPECIFIED SNOMED Code(s): 01318044 (6) Thrombocytopenia Current Visit: No Status: Acute Code(s): D69.6 - THROMBOCYTOPENIA, UNSPECIFIED SNOMED Code(s): 867249839 (7) Acute hepatic encephalopathy Current Visit: Yes Status: Acute Code(s): K72.00 - ACUTE AND SUBACUTE HEPATIC FAILURE WITHOUT COMA SNOMED Code(s): 39821987 Plan: 1. Case was discussed with interventional radiologist Dr. Nlul and Dr. Tumma. We'll proceed with diagnostic therapeutic paracentesis today. We'll transfuse 2 units of FFP prior to procedure as well albumin. 2. Patient is not a corticosteroid candidate secondary to hepatic encephalopathy. Continue Lactulose 20 g 4 times a day. Xifaxan 550 mg twice daily. 3. We'll defer to nephrology for diuretic management. 4. Overall prognosis is guarded if patient's clinical condition worsens will need to be transferred to a tertiary center for further evaluation. Assessment and plan a care discussed with Dr. Guerra
--- NOTE | 2017-09-28 11:42 | P.PN ---
Subjective Patient was admitted secondary to acute renal failure patient does have cirrhosis, found to have hyperammonemia patient was started on lactulose. Paracentesis was postponed today. Patient had bilious emesis patient is getting 100 mL of IV fluid multiple consultants including gastroenterology and nephrology are following the patient. Patient tiredness and weakness did improve. 09/28/2017 Patient's hyperammonemia is better patient will undergo therapeutic paracentesis today patient is bit hyponatremic. Patient liver enzymes remained fairly stable patient is not feeling any better compared to yesterday Constitutional: As mentioned in HPI Cardio vascular: denied any chest pain, palpitations Gastrointestinal as mentioned in HPI Pulmonary: Denied any shortness of breath cough Neurologic denied any new focal deficits Objective - Vital Signs Vital signs: Vital Signs Temp 97.3 F L 09/28/17 07:00 Pulse 100 09/28/17 07:00 Resp 18 09/28/17 07:00 BP 136/80 09/28/17 07:00 Pulse Ox 95 09/28/17 08:54 Intake & Output 09/27/17 09/28/17 09/28/17 18:59 06:59 18:59 Intake Total 2850 1600 Output Total 251 Balance 2599 1600 Weight 108.862 kg Intake: IV 1600 Sodium Chloride 0.9% 1, 1600 000 ml @ 100 mls/hr IV . Q10H [facility] Rx#:[id number] Intake, IV Titration 800 Amount Sodium Chloride 0.9% 1, 800 000 ml @ 100 mls/hr IV . Q10H [facility] Rx#:[id number] Oral 2050 Output: Urine 250 Emesis 1 Other: Voiding Method Bedside Commode Bedside Commode Bedside Commode Urinal Urinal Urinal # Voids 3 # Bowel Movements 5 - Exam PHYSICAL EXAMINATION: GENERAL: The patient is alert and oriented x3, not in any acute distress. Well developed, well nourished. Yellowish discoloration of skin HEENT: Pupils are round and equally reacting to light. EOMI. patient does have scleral icterus. No conjunctival pallor. Normocephalic, atraumatic. No pharyngeal erythema. No thyromegaly. CARDIOVASCULAR: S1 and S2 present. No murmurs, rubs, or gallops. PULMONARY: Chest is clear to auscultation, no wheezing or crackles. ABDOMEN: Distended with shifting dullness without any abdominal tenderness unable to appreciate any organomegaly MUSCULOSKELETAL: No joint swelling or deformity. EXTREMITIES: No cyanosis, clubbing, or pedal edema. NEUROLOGICAL: Gross neurological examination did not reveal any focal deficits. SKIN: No rashes. - Labs CBC & Chem 7: 09/28/17 07:19 09/28/17 07:19 Labs: Abnormal Lab Results - Last 24 Hours (Table) 09/28/17 09/28/17 09/28/17 Range/Units 07:19 07:19 07:19 WBC 13.8 H (3.8-10.6) k/uL RDW 18.7 H (11.5-15.5) % Plt Count 71 L (150-450) k/uL Neutrophils # 12.5 H (1.3-7.7) k/uL Lymphocytes # 0.4 L (1.0-4.8) k/uL PT 17.7 H (9.0-12.0) sec INR 1.9 H (<1.2) Sodium 132 L (137-145) mmol/L Potassium 3.2 L (3.5-5.1) mmol/L Chloride 95 L (98-107) mmol/L Carbon Dioxide 21 L (22-30) mmol/L BUN 118 H* (9-20) mg/dL Creatinine 3.71 H (0.66-1.25) mg/dL Glucose 175 H (74-99) mg/dL Calcium 8.2 L (8.4-10.2) mg/dL Total Bilirubin 37.3 H* (0.2-1.3) mg/dL AST 329 H (17-59) U/L ALT 262 H (21-72) U/L Alkaline Phosphatase 172 H (38-126) U/L Ammonia (<30) umol/L Albumin 2.5 L (3.5-5.0) g/dL Lipase 714 H (23-300) U/L 09/28/17 Range/Units 07:19 WBC (3.8-10.6) k/uL RDW (11.5-15.5) % Plt Count (150-450) k/uL Neutrophils # (1.3-7.7) k/uL Lymphocytes # (1.0-4.8) k/uL PT (9.0-12.0) sec INR (<1.2) Sodium (137-145) mmol/L Potassium (3.5-5.1) mmol/L Chloride (98-107) mmol/L Carbon Dioxide (22-30) mmol/L BUN (9-20) mg/dL Creatinine (0.66-1.25) mg/dL Glucose (74-99) mg/dL Calcium (8.4-10.2) mg/dL Total Bilirubin (0.2-1.3) mg/dL AST (17-59) U/L ALT (21-72) U/L Alkaline Phosphatase (38-126) U/L Ammonia 76 H (<30) umol/L Albumin (3.5-5.0) g/dL Lipase (23-300) U/L Assessment and Plan Plan: -Acute renal failure: Secondary to prerenal azotemia there may be a competent of hepatorenal syndrome urinary's random sodium 's 25 after IV fluids mostly has prerenal azotemia from diuretic therapy -Leukocytosis: Reactive I didn't see any pneumonia at this time. -Hyponatremia: Hypervolemic hyponatremia and severe intravascular 1 and patient contributed to decreased kidney perfusion leading to hyponatremia. -Hypokalemia secondary to Lasix which will be held IV fluid resuscitation as mentioned above -Elevated liver enzymes secondary to cirrhosis along with a competent of alcoholic hepatitis -Minimal elevation of lipase nonspecific -Coagulopathy secondary to liver diseases patient will undergo therapeutic paracentesis today and receiving albumin and fresh frozen plasma today -Hepatic encephalopathy patient is on rifaximin mean and also on lactulose Multiple bowel movements secondary to lactulose but there is a concern about dark stools will monitor his hemoglobin
--- NOTE | 2017-09-28 14:52 | US ---
Therapeutic and diagnostic paracentesis. DATE OF EXAM: 09/28/2017 CLINICAL HISTORY: Ascites The procedure was discussed with the patient. The risks, complications, benefits, and alternatives we re discussed and any questions were answered. Informed consent was obtained. The patient was placed s upine on the ultrasound table and prepped and draped in the usual sterile fashion. All elements of maximal barrier technique were utilized. Under ultrasound guidance, access into the left lower quadrant was obtained, via the paracentesis catheter system and direct ultrasound guidance . Approximately 4 liters of straw-colored fluid was removed. The patient was stable throughout the proc edure and remained stable upon discharge from Department of Radiology. Sample sent to pathology for a nalysis. IMPRESSION: Successful therapeutic and diagnostic paracentesis under ultrasound guidance.
[2017-09-28 17:37] LABS: Appearance,BF Clear; Color,BF Yellow; Nucleated Cells, Body Fluid 6 /uL; RBC, Body Fluid 59 /uL
--- NOTE | 2017-09-28 17:44 | PN ---
PROGRESS NOTE Patient is seen for followup for acute kidney injury. He was admitted to the hospital with a serum creatinine of 4.1. He was hypotensive. He has been started on IV fluids. His creatinine has improved to 3.7. Urine sodium was not low. The patient has underlying alcoholic liver cirrhosis with severe hyperbilirubinemia. He is scheduled for low-volume paracentesis sometime later on this afternoon. INR is elevated at 1.9. On examination today, patient states he is feeling about the same. Blood pressure is 142/71, heart rate 95 per minute. He is afebrile. EXAMINATION OF THE HEART: S1, S2. EXAMINATION OF LUNGS: Decreased breath sounds at the bases. ABDOMEN: Soft, distended, non-tender with ascites. Examination of lower extremities shows 1+ edema bilaterally. Patient is also jaundiced. PRESS TECHNICIAN exam is grossly intact. Labs show sodium 132, potassium 3.2, chloride 95, BUN 118, serum creatinine 3.7, bilirubin 37.3. Calcium is 8.2, lipase 714. Stool for occult blood was positive. ASSESSMENT: 1. Acute kidney injury. Doubt hepatorenal syndrome. Currently patient is nonoliguric. Urine sodium was not low. He may have some degree of ATN from the severe hyperbilirubinemia as well. Continue with IV fluids. Avoid hypotension. Recommend only 3 to 4 L of paracentesis today. I will repeat another random urine sodium. Overall prognosis is guarded. 2. Hypokalemia. Replace aggressively. Check magnesium levels as well. 3. Alcoholic liver cirrhosis. 4. Coagulopathy from alcoholic liver disease. PLAN: Continue IV fluids. Fluid removal of 3 to 4 L with paracentesis. Repeat random urine sodium. Overall prognosis is guarded. MMODL / IJN: [id number] /
[2017-09-29] MEDS: SODIUM CHLORIDE 0.9% 1,000 ML IV SCH ×2 (05:28→15:54)
[2017-09-29] MEDS: MORPHINE SULFATE 2 MG/ML SYRINGE IV PRN ×3 (05:29→15:51)
[2017-09-29 07:44] LABS: Albumin 2.6 g/dL (3.5-5.0); Calcium 8.6 mg/dL (8.4-10.2); Potassium 3.1 mmol/L (3.5-5.1)
[2017-09-29 07:56] LABS: Prothrombin Time 17.5 sec (9.0-12.0)
[2017-09-29 07:57] LABS: INR 1.9 (<1.2); Total Bilirubin 37.4 mg/dL (0.2-1.3)
[2017-09-29] MEDS: FAMOTIDINE 20 MG TAB PO SCH (09:38)
[2017-09-29] MEDS: POTASSIUM CHLORIDE ER 20 MEQ TAB.ER PO SCH ×2 (09:38→20:27)
[2017-09-29] MEDS: LACTULOSE 20 GM/30 ML CUP PO SCH ×4 (09:38→23:10)
[2017-09-29] MEDS: RIFAXIMIN 550 MG TABLET PO SCH ×2 (09:38→20:27)
--- NOTE | 2017-09-29 11:11 | P.PN ---
Subjective Progress Note Date: 09/29/17 Principal diagnosis: This 52-year-old male is seen with acute kidney injury, secondary to cirrhosis. This is deemed to be from prerenal. He has cirrhosis with history of alcoholism in the past. He was recently discharge from the hospital with acute alcoholic hepatitis. He is known with diabetes right kidney cancer removal. His creatinine has improved somewhat from 4.1-3.7 He remains deeply jaundiced and tired. No nausea vomiting diarrhea abdominal pain no fever chills cough shortness of breath. Objective - Vital Signs Vital signs: Vital Signs Temp 97.4 F L 09/29/17 07:00 Pulse 92 09/29/17 08:00 Resp 18 09/29/17 08:00 BP 136/66 09/29/17 07:00 Pulse Ox 94 L 09/29/17 07:00 Intake & Output 09/28/17 09/29/17 09/29/17 18:59 06:59 18:59 Intake Total 539 Output Total 200 1 Balance 339 -1 Weight 108.862 kg Intake: Blood Product 539 Ffp 24 Cpd Unit 327 [id number] Ffp 24 Pher Acda Cnt2 212 Unit [id number] Output: Urine 200 Stool 1 Other: Voiding Method Bedside Commode Bedside Commode Bedside Commode Urinal Urinal Urinal # Voids 2 1 # Bowel Movements 4 1 1 On examination he looks deeply jaundiced. HEENT exam no JVP, neck is supple no facial asymmetry. Lungs are clear to auscultation percussion good air entry bilaterally. Heart sounds are unremarkable for any murmur rub gallop Abdomen is minimally distended with ascites. No organomegaly noted Extremity exam was mild edema Neurologically awake alert oriented no asterixis and was weakness - Labs CBC & Chem 7: 09/28/17 07:19 09/29/17 07:09 Labs: Abnormal Lab Results - Last 24 Hours (Table) 09/28/17 09/29/17 09/29/17 Range/Units 23:29 07:09 07:09 PT 17.5 H (9.0-12.0) sec INR 1.9 H (<1.2) Potassium 3.1 L (3.5-5.1) mmol/L Carbon Dioxide 20 L (22-30) mmol/L BUN 121 H* (9-20) mg/dL Creatinine 3.77 H (0.66-1.25) mg/dL Glucose 187 H (74-99) mg/dL Total Bilirubin 37.4 H* (0.2-1.3) mg/dL AST 221 H (17-59) U/L ALT 180 H (21-72) U/L Ammonia (<30) umol/L Total Protein 6.0 L (6.3-8.2) g/dL Albumin 2.6 L (3.5-5.0) g/dL Ur Random Sodium 6 L (30-90) mmol/L 09/29/17 Range/Units 07:09 PT (9.0-12.0) sec INR (<1.2) Potassium (3.5-5.1) mmol/L Carbon Dioxide (22-30) mmol/L BUN (9-20) mg/dL Creatinine (0.66-1.25) mg/dL Glucose (74-99) mg/dL Total Bilirubin (0.2-1.3) mg/dL AST (17-59) U/L ALT (21-72) U/L Ammonia 49 H (<30) umol/L Total Protein (6.3-8.2) g/dL Albumin (3.5-5.0) g/dL Ur Random Sodium (30-90) mmol/L Microbiology - Last 24 Hours (Table) 09/28/17 13:37 Gram Stain - Preliminary Ascites Fluid Body Fluid Culture - Preliminary 09/28/17 13:37 Anaerobic Culture - Preliminary Peritoneal Fluid Assessment and Plan Assessment: Impression. 1. Acute kidney injury from prerenal in a patient with cirrhosis. Creatinine improved from 4.13-3.7. Baseline creatinine was 1.03 as of 09/09/2017. 2. Mild hypokalemia secondary to low intake and possible GI loss from the lactulose. On replacement with 20 mEq daily and adequate for right now. Magnesium is 2.2 on 09/26/2079 3. Mild ascites deep jaundice secondary to alcohol liver disease and cirrhosis. Recommendation. 1. Maintain IV normal saline 100 enema per hour. 2. Increase the potassium to 20 mg twice a day. 3. Monitor labs urine output blood pressure.
--- NOTE | 2017-09-29 13:00 | P.PN ---
Subjective Patient was admitted secondary to acute renal failure patient does have cirrhosis, found to have hyperammonemia patient was started on lactulose. Paracentesis was postponed today. Patient had bilious emesis patient is getting 100 mL of IV fluid multiple consultants including gastroenterology and nephrology are following the patient. Patient tiredness and weakness did improve. 09/28/2017 Patient's hyperammonemia is better patient will undergo therapeutic paracentesis today patient is bit hyponatremic. Patient liver enzymes remained fairly stable patient is not feeling any better compared to yesterday 09/29/2017 Patient did undergo therapeutic paracentesis with removal of 4 L of fluid from the abdomen minimal improvement compared to yesterday discussed extensively at length the with the nephrology and do not believe patient has hepatorenal syndrome because of patient's today he may not benefit from transfer to tertiary facility kidney function did improve minimally continue with IV fluids presently. Constitutional: As mentioned in HPI Cardio vascular: denied any chest pain, palpitations Gastrointestinal as mentioned in HPI Pulmonary: Denied any shortness of breath cough Neurologic denied any new focal deficits Objective - Vital Signs Vital signs: Vital Signs Temp 97.4 F L 09/29/17 07:00 Pulse 92 09/29/17 08:00 Resp 18 09/29/17 08:00 BP 136/66 09/29/17 07:00 Pulse Ox 94 L 09/29/17 07:00 Intake & Output 09/28/17 09/29/17 09/29/17 18:59 06:59 18:59 Intake Total 539 Output Total 200 1 Balance 339 -1 Weight 108.862 kg Intake: Blood Product 539 Ffp 24 Cpd Unit 327 [id number] Ffp 24 Pher Acda Cnt2 212 Unit [id number] Output: Urine 200 Stool 1 Other: Voiding Method Bedside Commode Bedside Commode Bedside Commode Urinal Urinal Urinal # Voids 2 1 # Bowel Movements 4 1 1 - Exam PHYSICAL EXAMINATION: GENERAL: The patient is alert and oriented x3, not in any acute distress. Well developed, well nourished. Yellowish discoloration of skin HEENT: Pupils are round and equally reacting to light. EOMI. patient does have scleral icterus. No conjunctival pallor. Normocephalic, atraumatic. No pharyngeal erythema. No thyromegaly. CARDIOVASCULAR: S1 and S2 present. No murmurs, rubs, or gallops. PULMONARY: Chest is clear to auscultation, no wheezing or crackles. ABDOMEN: Distended with shifting dullness without any abdominal tenderness unable to appreciate any organomegaly MUSCULOSKELETAL: No joint swelling or deformity. EXTREMITIES: No cyanosis, clubbing, or pedal edema. NEUROLOGICAL: Gross neurological examination did not reveal any focal deficits. SKIN: No rashes. - Labs CBC & Chem 7: 09/28/17 07:19 09/29/17 07:09 Labs: Abnormal Lab Results - Last 24 Hours (Table) 09/28/17 09/29/17 09/29/17 Range/Units 23:29 07:09 07:09 PT 17.5 H (9.0-12.0) sec INR 1.9 H (<1.2) Potassium 3.1 L (3.5-5.1) mmol/L Carbon Dioxide 20 L (22-30) mmol/L BUN 121 H* (9-20) mg/dL Creatinine 3.77 H (0.66-1.25) mg/dL Glucose 187 H (74-99) mg/dL Total Bilirubin 37.4 H* (0.2-1.3) mg/dL AST 221 H (17-59) U/L ALT 180 H (21-72) U/L Ammonia (<30) umol/L Total Protein 6.0 L (6.3-8.2) g/dL Albumin 2.6 L (3.5-5.0) g/dL Ur Random Sodium 6 L (30-90) mmol/L 09/29/17 Range/Units 07:09 PT (9.0-12.0) sec INR (<1.2) Potassium (3.5-5.1) mmol/L Carbon Dioxide (22-30) mmol/L BUN (9-20) mg/dL Creatinine (0.66-1.25) mg/dL Glucose (74-99) mg/dL Total Bilirubin (0.2-1.3) mg/dL AST (17-59) U/L ALT (21-72) U/L Ammonia 49 H (<30) umol/L Total Protein (6.3-8.2) g/dL Albumin (3.5-5.0) g/dL Ur Random Sodium (30-90) mmol/L Microbiology - Last 24 Hours (Table) 09/28/17 13:37 Gram Stain - Preliminary Ascites Fluid Body Fluid Culture - Preliminary 09/28/17 13:37 Anaerobic Culture - Preliminary Peritoneal Fluid Assessment and Plan Plan: -Acute renal failure: Secondary to prerenal azotemia there may be a competent of hepatorenal syndrome urinary's random sodium 's 25 after IV fluids mostly has prerenal azotemia from diuretic therapy for possibility of hepatorenal syndrome is extremely low as patient is making urine and his creatinine is improving with IV fluids -Leukocytosis: Reactive I didn't see any pneumonia at this time. -Hyponatremia: Hypervolemic hyponatremia and severe intravascular 1 and patient contributed to decreased kidney perfusion leading to hyponatremia. -Hypokalemia secondary to Lasix which will be held IV fluid resuscitation as mentioned above -Elevated liver enzymes secondary to cirrhosis along with a competent of alcoholic hepatitis -Minimal elevation of lipase nonspecific -Coagulopathy secondary to liver diseases and did undergo orthopedic paracentesis with removal of 4 L of ascites fluid -Hepatic encephalopathy patient is on rifaximin mean and also on lactulose Multiple bowel movements secondary to lactulose but there is a concern about dark stools will monitor his hemoglobin
--- NOTE | 2017-09-29 14:09 | PN ---
PROGRESS NOTE DATE OF SERVICE: 09/29/2017 REQUESTING PHYSICIAN: Dr. Farley. The patient is a 52-year-old white male was admitted to hospital with acute alcoholic hepatitis, acute renal failure and ascites. He underwent paracentesis yesterday and he was given IV 4 L of fluid was aspirated. This morning he states that his abdomen is feeling better. He still is complaining of some shortness of breath. Overall, he feels not well, extremely tired and fatigued and significant weakness. He reports no nausea, vomiting. He reports no fever, chills, night sweats. PHYSICAL EXAMINATION: Temperature 97.4, pulse rate 92, blood pressure 136/66. HEENT examination unremarkable. Conjunctivae pink. Sclerae deeply icteric. Oral cavity no lesions. Neck: No jugular venous distention or lymph node enlargement. The chest was clear to auscultation. HEART: Regular rate and rhythm. Abdomen is distended. There was small amount of free fluid noted. Liver and spleen not palpable. Extremities: No pedal edema. Skin no rashes. NEUROLOGIC: Alert and oriented x3. No focal deficits. LAB: From today, WBC 13.8, hemoglobin 13.6, platelets 71,000. Sodium 137, potassium 3.1, chloride 102, CO2 20, BUN 21, creatinine 3.77, T bilirubin is 37.4, INR is 1.9. Ammonia level is 49. IMPRESSION: 1. Acute alcoholic hepatitis. 2. Acute renal failure. Nephrology following the patient, the patient has severe prerenal azotemia, but hepatorenal syndrome could not be excluded. Diuretics are on hold. 3. Leukocytosis, most likely related to acute alcoholic hepatitis. 4. Coagulopathy from underlying liver disease. 5. Hepatic encephalopathy which has resolved. Presently on Xifaxan and lactulose, and he is having about 4 bowel movements daily. RECOMMENDATIONS: Once again, I had a lengthy discussion with the patient regarding prognosis. The patient during his previous hospitalization which was about 3 weeks ago, was treated with prednisone on outpatient basis and did not have any significant improvement in his liver parameters. At this time we will continue to watch him closely and continue with symptomatic and supportive care with gentle hydration, avoiding nephrotoxic medications and holding on the diuretics. We will continue the lactulose as well as Xifaxan for hepatic encephalopathy and ammonia levels have been gradually improving. We will follow him closely. His last alcohol intake was approximately a month ago. If there is any clinical deterioration in his overall condition, he may need to be transferred to a tertiary institute for evaluation of liver transplantation. The plan was discussed with the patient. He is agreeable to it. Thank you for this consultation. LAKESHA / LALO: [id number] /
[2017-09-30] MEDS: MORPHINE SULFATE 2 MG/ML SYRINGE IV PRN ×6 (00:06→22:05)
[2017-09-30] MEDS: SODIUM CHLORIDE 0.9% 1,000 ML IV SCH ×3 (01:30→20:07)
[2017-09-30 07:27] LABS: Anisocytosis Slight; HCT 36.3 % (39.0-53.0); HGB 11.5 gm/dL (13.0-17.5); Hypochromasia Slight; MCH 31.3 pg (25.0-35.0); MCHC 31.6 g/dL (31.0-37.0); MCV 98.8 fL (80.0-100.0); Macrocytosis Slight; Mean Platelet Volume 10.3; RBC 3.67 m/uL (4.30-5.90); RDW 18.4 % (11.5-15.5); WBC 11.9 k/uL (3.8-10.6)
[2017-09-30 07:32] LABS: Platelet Count 59 k/uL (150-450)
[2017-09-30 07:33] LABS: Prothrombin Time 17.9 sec (9.0-12.0)
[2017-09-30 07:37] LABS: Albumin 2.5 g/dL (3.5-5.0); Calcium 8.7 mg/dL (8.4-10.2); Potassium 3.2 mmol/L (3.5-5.1); Total Protein 5.8 g/dL (6.3-8.2)
[2017-09-30 07:51] LABS: Total Bilirubin 39.3 mg/dL (0.2-1.3)
[2017-09-30] MEDS: LACTULOSE 20 GM/30 ML CUP PO SCH ×4 (08:15→21:49)
[2017-09-30] MEDS: RIFAXIMIN 550 MG TABLET PO SCH ×2 (08:15→20:06)
[2017-09-30] MEDS: FAMOTIDINE 20 MG TAB PO SCH (08:15)
[2017-09-30] MEDS: POTASSIUM CHLORIDE ER 20 MEQ TAB.ER PO SCH ×2 (08:15→20:06)
[2017-09-30] MEDS ORDERED: POTASSIUM CHLORIDE ER 20 MEQ TAB.ER PO STA (11:25)
--- NOTE | 2017-09-30 11:28 | PN ---
PROGRESS NOTE DATE OF SERVICE: 09/30/17 REQUESTING PHYSICIAN: Dr. Claire. The patient is a 52-year-old pleasant white male admitted to hospital with acute alcoholic hepatitis, hepatic encephalopathy, and refractory ascites and prerenal azotemia. The patient today states he continues to feel extremely tired, did not have sleep all night. No abdominal pain. No nausea, vomiting. Appetite has been decreasing. He had two bowel movements yesterday which were dark in color. No fever, chills, or night sweats. PHYSICAL EXAMINATION: Blood pressure 148/78, pulse rate 101, temperature 97. HEENT examination unremarkable. Conjunctivae pink. Sclerae deeply icteric. Oral cavity no lesions. Neck no jugular venous distention or lymph node enlargement. Chest was clear to auscultation. HEART: Regular rate and rhythm. Abdomen is distended. Ascites noted. Moderate amount of ascites noted. Extremities are 2+ pedal edema. Skin no rashes. Neuro: He is alert and oriented x3. LABS: From today, WBC 11.9, hemoglobin 11.5, platelets a 59,000. T-bilirubin 39.3, AST 216, ALT 198, alkaline phosphatase 141. INR 2. Ammonia is 33. IMPRESSION: 1. Severe acute alcoholic hepatitis. The patient was treated with prednisone for 2 weeks about 3 weeks ago with no improvement in his biochemical parameters. Presently the bilirubin continues to trend upwards and overall has severe acute alcoholic hepatitis. 2. Hepatic encephalopathy on lactulose and Xifaxan, doing well. 3. Refractory ascites. Diuretics on hold. Status post large volume paracentesis 2 days ago on 4 L removed with IV albumin infusions. 4. Acute renal failure/hepatic renal syndrome. Nephrology following the patient closely. BUN and creatinine still elevated. RECOMMENDATIONS: 1. Continue with IV hydration and holding the diuretics. 2. Continue with Xifaxan and lactulose. 3. I had a lengthy discussion with the patient regarding guarded prognosis and because of the persistent worsening bilirubin as well as no significant improvement noted on his kidney functions and concern of hepatorenal syndrome, I will discuss with Dr. Claire regarding possible transfer to [facility] for further management. Thank you for this consultation. MMODL / IJN: [id number] /
--- NOTE | 2017-09-30 11:33 | P.PN ---
Subjective Progress Note Date: 09/30/17 Principal diagnosis: This 52-year-old male is seen with acute kidney injury, secondary to cirrhosis. This is deemed to be from prerenal. Additionally he has hypokalemia from the diarrhea. He has cirrhosis with history of alcoholism in the past. He was recently discharge from the hospital with acute alcoholic hepatitis. He is known with diabetes right kidney cancer removal. He also has non obstructing right sided nephrolithiasis based on computed tomography scan dated 09/27/2017 His creatinine has improved somewhat from 4.1-3.77 > 3.6. Of concern though his sodium has gone down from 137-132 this morning, although his sodium has in the past few days been in the 1:30 to level He remains deeply jaundiced and tired. No nausea vomiting diarrhea. He does complain off abdominal pain over the left flank. No dysuria frequency. No hematuria. His bowels are loose because of the lactulose is on. no fever chills cough shortness of breath. He is on morphine sulfate for the pain and seems to be requiring more and more pain medications. He had a paracentesis done on 09/28/2017 2 days ago 4 L were removed. His ascites is moderate at this time Objective - Vital Signs Vital signs: Vital Signs Temp 97.8 F 09/30/17 07:00 Pulse 92 09/30/17 07:00 Resp 18 09/30/17 07:00 BP 122/63 09/30/17 07:00 Pulse Ox 99 09/30/17 07:00 Intake & Output 09/29/17 09/30/17 09/30/17 18:59 06:59 18:59 Intake Total 240 Output Total 2 200 Balance 238 -200 Weight 108.862 kg Intake: Oral 240 Output: Urine 200 Stool 2 Other: Voiding Method Bedside Commode Bedside Commode Bedside Commode Urinal Urinal # Voids 700 2 2 # Bowel Movements 6 2 2 On examination he is deeply jaundiced but awake alert oriented to place but not to time. HEENT exam no JVP neck is supple no facial asymmetry Lungs are clear to auscultation percussion good air entry bilaterally Heart sounds are unremarkable for any murmur rub gallop Abdomen soft and distended with mild to moderate ascites nontender. Extremity exam reveals minimal edema Neurologically awake alert oriented to place only but not to time. No asterixis. - Labs CBC & Chem 7: 09/30/17 06:43 09/30/17 06:43 Labs: Abnormal Lab Results - Last 24 Hours (Table) 09/30/17 09/30/17 09/30/17 Range/Units 06:43 06:43 06:43 WBC (3.8-10.6) k/uL RBC (4.30-5.90) m/uL Hgb (13.0-17.5) gm/dL Hct (39.0-53.0) % RDW (11.5-15.5) % Plt Count (150-450) k/uL PT 17.9 H (9.0-12.0) sec INR 2.0 H (<1.2) Sodium 132 L (137-145) mmol/L Potassium 3.2 L (3.5-5.1) mmol/L Carbon Dioxide 20 L (22-30) mmol/L BUN 101 H* (9-20) mg/dL Creatinine 3.67 H (0.66-1.25) mg/dL Glucose 272 H (74-99) mg/dL Total Bilirubin 39.3 H* (0.2-1.3) mg/dL AST 216 H (17-59) U/L ALT 198 H (21-72) U/L Alkaline Phosphatase 141 H (38-126) U/L Ammonia 33 H (<30) umol/L Total Protein 5.8 L (6.3-8.2) g/dL Albumin 2.5 L (3.5-5.0) g/dL 09/30/17 Range/Units 06:43 WBC 11.9 H (3.8-10.6) k/uL RBC 3.67 L (4.30-5.90) m/uL Hgb 11.5 L (13.0-17.5) gm/dL Hct 36.3 L (39.0-53.0) % RDW 18.4 H (11.5-15.5) % Plt Count 59 L (150-450) k/uL PT (9.0-12.0) sec INR (<1.2) Sodium (137-145) mmol/L Potassium (3.5-5.1) mmol/L Carbon Dioxide (22-30) mmol/L BUN (9-20) mg/dL Creatinine (0.66-1.25) mg/dL Glucose (74-99) mg/dL Total Bilirubin (0.2-1.3) mg/dL AST (17-59) U/L ALT (21-72) U/L Alkaline Phosphatase (38-126) U/L Ammonia (<30) umol/L Total Protein (6.3-8.2) g/dL Albumin (3.5-5.0) g/dL Microbiology - Last 24 Hours (Table) 09/28/17 13:37 Gram Stain - Preliminary Ascites Fluid Body Fluid Culture - Preliminary Assessment and Plan Assessment: Impression. 1. Acute kidney injury from prerenal in a patient with cirrhosis. Creatinine improved from 4.13-3.7 to 3.6, sodium thogh went down, watch for HRS. . Baseline creatinine was 1.03 as of 09/09/2017. 2. Mild hypokalemia secondary to low intake and possible GI loss from the lactulose. On replacement with 20 mEq BID, Magnesium is 2.2 on 09/26/2079 3. Right side Non Pbs nephrolitiasis 4. Mild ascites deep jaundice secondary to alcohol liver disease and cirrhosis. Tap 09/28/17 4 lit 5. Morphine dependant ?? for abd pain. CT showed gall bladder hydrops but pain left sided Recommendation. 1. Maintain IV normal saline 100 per hour. 2. extra potassium to 40 meq today for total 80 meq and cont 20 Meq twice a day. 3. Monitor labs urine output blood pressure. 4. Watch Na, mat indicate HRS if it cont to go down and is sign of poor prognosis.
--- NOTE | 2017-09-30 12:09 | P.PN ---
Subjective Patient was admitted secondary to acute renal failure patient does have cirrhosis, found to have hyperammonemia patient was started on lactulose. Paracentesis was postponed today. Patient had bilious emesis patient is getting 100 mL of IV fluid multiple consultants including gastroenterology and nephrology are following the patient. Patient tiredness and weakness did improve. 09/28/2017 Patient's hyperammonemia is better patient will undergo therapeutic paracentesis today patient is bit hyponatremic. Patient liver enzymes remained fairly stable patient is not feeling any better compared to yesterday 09/29/2017 Patient did undergo therapeutic paracentesis with removal of 4 L of fluid from the abdomen minimal improvement compared to yesterday discussed extensively at length the with the nephrology and do not believe patient has hepatorenal syndrome because of patient's today he may not benefit from transfer to tertiary facility kidney function did improve minimally continue with IV fluids presently. 09/30/2017 Patient still feels quite weak but feels little bit better as wheezing on exam because of which I'll start him inhalational steroids and albuterol ipratropium Constitutional: As mentioned in HPI Cardio vascular: denied any chest pain, palpitations Gastrointestinal as mentioned in HPI Pulmonary: Denied any shortness of breath cough Neurologic denied any new focal deficits Objective - Vital Signs Vital signs: Vital Signs Temp 97.8 F 09/30/17 07:00 Pulse 92 09/30/17 07:00 Resp 18 09/30/17 07:00 BP 122/63 09/30/17 07:00 Pulse Ox 99 09/30/17 07:00 Intake & Output 09/29/17 09/30/17 09/30/17 18:59 06:59 18:59 Intake Total 240 Output Total 2 200 Balance 238 -200 Weight 108.862 kg Intake: Oral 240 Output: Urine 200 Stool 2 Other: Voiding Method Bedside Commode Bedside Commode Bedside Commode Urinal Urinal # Voids 700 2 2 # Bowel Movements 6 2 2 - Exam PHYSICAL EXAMINATION: GENERAL: The patient is alert and oriented x3, not in any acute distress. Well developed, well nourished. Yellowish discoloration of skin HEENT: Pupils are round and equally reacting to light. EOMI. patient does have scleral icterus. No conjunctival pallor. Normocephalic, atraumatic. No pharyngeal erythema. No thyromegaly. CARDIOVASCULAR: S1 and S2 present. No murmurs, rubs, or gallops. PULMONARY: Chest is clear to auscultation, no wheezing or crackles. ABDOMEN: Distended with shifting dullness without any abdominal tenderness unable to appreciate any organomegaly MUSCULOSKELETAL: No joint swelling or deformity. EXTREMITIES: No cyanosis, clubbing, or pedal edema. NEUROLOGICAL: Gross neurological examination did not reveal any focal deficits. SKIN: No rashes. - Labs CBC & Chem 7: 09/30/17 06:43 09/30/17 06:43 Labs: Abnormal Lab Results - Last 24 Hours (Table) 09/30/17 09/30/17 09/30/17 Range/Units 06:43 06:43 06:43 WBC (3.8-10.6) k/uL RBC (4.30-5.90) m/uL Hgb (13.0-17.5) gm/dL Hct (39.0-53.0) % RDW (11.5-15.5) % Plt Count (150-450) k/uL PT 17.9 H (9.0-12.0) sec INR 2.0 H (<1.2) Sodium 132 L (137-145) mmol/L Potassium 3.2 L (3.5-5.1) mmol/L Carbon Dioxide 20 L (22-30) mmol/L BUN 101 H* (9-20) mg/dL Creatinine 3.67 H (0.66-1.25) mg/dL Glucose 272 H (74-99) mg/dL Total Bilirubin 39.3 H* (0.2-1.3) mg/dL AST 216 H (17-59) U/L ALT 198 H (21-72) U/L Alkaline Phosphatase 141 H (38-126) U/L Ammonia 33 H (<30) umol/L Total Protein 5.8 L (6.3-8.2) g/dL Albumin 2.5 L (3.5-5.0) g/dL 09/30/17 Range/Units 06:43 WBC 11.9 H (3.8-10.6) k/uL RBC 3.67 L (4.30-5.90) m/uL Hgb 11.5 L (13.0-17.5) gm/dL Hct 36.3 L (39.0-53.0) % RDW 18.4 H (11.5-15.5) % Plt Count 59 L (150-450) k/uL PT (9.0-12.0) sec INR (<1.2) Sodium (137-145) mmol/L Potassium (3.5-5.1) mmol/L Carbon Dioxide (22-30) mmol/L BUN (9-20) mg/dL Creatinine (0.66-1.25) mg/dL Glucose (74-99) mg/dL Total Bilirubin (0.2-1.3) mg/dL AST (17-59) U/L ALT (21-72) U/L Alkaline Phosphatase (38-126) U/L Ammonia (<30) umol/L Total Protein (6.3-8.2) g/dL Albumin (3.5-5.0) g/dL Microbiology - Last 24 Hours (Table) 09/28/17 13:37 Gram Stain - Preliminary Ascites Fluid Body Fluid Culture - Preliminary Assessment and Plan Plan: -Acute renal failure: Secondary to prerenal azotemia there may be a competent of hepatorenal syndrome urinary's random sodium 's 25 after IV fluids mostly has prerenal azotemia from diuretic therapy for possibility of hepatorenal syndrome is extremely low as patient is making urine and his creatinine is improving with IV fluids, slow improvement in creatinine -Leukocytosis: Reactive -Hyponatremia: Hypervolemic hyponatremia and severe intravascular 1 and patient contributed to decreased kidney perfusion leading to hyponatremia. -Hypokalemia secondary to Lasix which will be held IV fluid resuscitation as mentioned above -Elevated liver enzymes secondary to cirrhosis -Minimal elevation of lipase nonspecific -Coagulopathy secondary to liver diseases and did undergo orthopedic paracentesis with removal of 4 L of ascites fluid -Hepatic encephalopathy patient is on rifaximin mean and also on lactulose Multiple bowel movements secondary to lactulose but there is a concern about dark stools will monitor his hemoglobin sore all prognosis is poor -Bronchospasm with possible today of undiagnosed COPD, start on albuterol ipratropium and significant Symbicort
[2017-09-30] MEDS: IPRATROPIUM-ALBUTEROL 3 ML NEB INHALATION SCH ×2 (15:55→19:03)
[2017-09-30] MEDS: SYMBICORT 160-4.5 MCG INHALER INHALATION SCH (19:04)
[2017-09-30 21:33] VITALS: TEMP 97.8
[2017-10-01] MEDS: MORPHINE SULFATE 2 MG/ML SYRINGE IV PRN ×2 (05:27→11:28)
[2017-10-01] MEDS: SYMBICORT 160-4.5 MCG INHALER INHALATION SCH (07:25)
[2017-10-01] MEDS: IPRATROPIUM-ALBUTEROL 3 ML NEB INHALATION SCH ×2 (07:25→10:57)
[2017-10-01 08:04] LABS: Albumin 2.4 g/dL (3.5-5.0); Calcium 8.6 mg/dL (8.4-10.2); Magnesium 2.4 mg/dL (1.6-2.3); Potassium 3.7 mmol/L (3.5-5.1); Total Protein 5.9 g/dL (6.3-8.2)
[2017-10-01 08:14] LABS: Total Bilirubin 40.1 mg/dL (0.2-1.3)
[2017-10-01 08:25] LABS: INR 1.9 (<1.2); Prothrombin Time 17.2 sec (9.0-12.0)
[2017-10-01 08:42] VITALS: BP 133/69; PULSE 97; RESP 18
[2017-10-01] MEDS: FAMOTIDINE 20 MG TAB PO SCH (09:04)
[2017-10-01] MEDS: RIFAXIMIN 550 MG TABLET PO SCH (09:04)
[2017-10-01] MEDS: POTASSIUM CHLORIDE ER 20 MEQ TAB.ER PO SCH (09:04)
[2017-10-01] MEDS: LACTULOSE 20 GM/30 ML CUP PO SCH ×2 (09:04→12:37)
[2017-10-01] MEDS: SODIUM CHLORIDE 0.9% 1,000 ML IV SCH (09:04)
--- NOTE | 2017-10-01 13:19 | P.DS ---
Providers Date of admission: 09/26/17 13:27 Attending physician: John Negron Consults: 09/26/17 13:28 Consult Physician Routine Consulting Provider: Angela Guerra Consult Reason/Comments: liver failure, elevated bilirubin Do you want consulting provider notified?: Yes 09/26/17 13:29 Consult Physician Routine Consulting Provider: Kenyatta Boothe Consult Reason/Comments: kidney failure Do you want consulting provider notified?: Yes Primary care physician: [facility] Course: Patient was admitted secondary to acute renal failure patient does have cirrhosis, found to have hyperammonemia patient was started on lactulose. Paracentesis was postponed today. Patient had bilious emesis patient is getting 100 mL of IV fluid multiple consultants including gastroenterology and nephrology are following the patient. Patient tiredness and weakness did improve. 09/28/2017 Patient's hyperammonemia is better patient will undergo therapeutic paracentesis today patient is bit hyponatremic. Patient liver enzymes remained fairly stable patient is not feeling any better compared to yesterday 09/29/2017 Patient did undergo therapeutic paracentesis with removal of 4 L of fluid from the abdomen minimal improvement compared to yesterday discussed extensively at length the with the nephrology and do not believe patient has hepatorenal syndrome because of patient's today he may not benefit from transfer to tertiary facility kidney function did improve minimally continue with IV fluids presently. 09/30/2017 Patient still feels quite weak but feels little bit better as wheezing on exam because of which I'll start him inhalational steroids and albuterol ipratropium 10/01/2017 Patient clinical condition did not change significantly patient's abdomen is more distended bilirubin is elevated to 40 patient's ammonia level is 76 patient is on Mefoxin mean for hepatic encephalopathy. Gastroneurology recommended transfer to [facility] discussed with the patient and family agree with family is agreeable for transfer understands the transfer is only for evaluation by liver transplant team at [facility] PHYSICAL EXAMINATION: GENERAL: The patient is alert and oriented x3, not in any acute distress. Well developed, well nourished. Yellowish discoloration of skin HEENT: Pupils are round and equally reacting to light. EOMI. patient does have scleral icterus. No conjunctival pallor. Normocephalic, atraumatic. No pharyngeal erythema. No thyromegaly. CARDIOVASCULAR: S1 and S2 present. No murmurs, rubs, or gallops. PULMONARY: Chest is clear to auscultation, no wheezing or crackles. ABDOMEN: Distended with shifting dullness without any abdominal tenderness unable to appreciate any organomegaly MUSCULOSKELETAL: No joint swelling or deformity. EXTREMITIES: No cyanosis, clubbing, or pedal edema. NEUROLOGICAL: Gross neurological examination did not reveal any focal deficits. SKIN: No rashes. Pertinent Studies: Assessment and Plan Plan: -Acute renal failure: Secondary to prerenal azotemia there may be a competent of hepatorenal syndrome urinary's random sodium 's 25 after IV fluids mostly has prerenal azotemia from diuretic therapy there was initial improvement in creatinine with IV fluids after which it stabilized no significant improvement for last 2-3 days. Patient is being transferred to [facility] for evaluation by liver transplant team -Leukocytosis: Reactive resolved -Hyponatremia: Hypervolemic hyponatremia and severe intravascular volume depletion patient contributed to decreased kidney perfusion leading to hyponatremia. -Hypokalemia resolved now -Elevated liver enzymes and bilirubin secondary to cirrhosis -Minimal elevation of lipase nonspecific -Coagulopathy secondary to liver diseases and did undergo orthopedic paracentesis with removal of 4 L of ascites fluid, no peritonitis -Hepatic encephalopathy patient is on rifaximin and n lactulose -Bronchospasm with possible undiagnosed COPD, start on albuterol ipratropium and Symbicort Patient Condition at Discharge: Serious Plan - Discharge Summary Discharge Rx Participant: No New Discharge Prescriptions: No Action Furosemide [Lasix] 40 mg PO BID #60 tablet Potassium Chloride ER [K-Dur 20] 20 meq PO DAILY #30 tab HYDROmorphone HCL [Dilaudid] 4 mg PO Q4H PRN PRN Reason: Pain Discharge Medication List Furosemide [Lasix] 40 mg PO BID #60 tablet 09/09/17 [Rx] Potassium Chloride ER [K-Dur 20] 20 meq PO DAILY #30 tab 09/09/17 [Rx] HYDROmorphone HCL [Dilaudid] 4 mg PO Q4H PRN 09/26/17 [History] Follow up Appointment(s)/Referral(s): Keven Farley DO [Primary Care Provider] - 1-2 days
--- NOTE | 2017-10-01 18:14 | PN ---
PROGRESS NOTE DATE OF SERVICE: 10/01/17 Patient is a 52 -year-old pleasant white male admitted to the hospital with acute severe alcoholic hepatitis, altered mental status/ and acute renal failure. He has been in the hospital for the last 5 days with no significant improvement in his overall condition. He complains of fatigue, weakness, tiredness, decreased appetite, but no fever, chills, or night sweats. No further episodes of nausea, vomiting. paracentesis and 4 L of fluid was removed for refractory ascites about 5 days ago. Diuretics presently are on hold. Decreased BUN and creatinine. PHYSICAL EXAMINATION: He appears comfortable. No apparent distress. VITAL SIGNS: Stable. Blood pressure is 133/99, pulse rate 97, temperature 97.8. HEENT examination: Unremarkable. Conjunctivae pink. Sclerae deeply icteric. Oral cavity no lesions. Neck: No jugular venous distention or lymph node enlargement. Chest was clear to auscultation. HEART: Regular rate and rhythm. Abdomen is slightly distended. There was some free fluid noted in the abdomen. Extremities 2+ pedal edema. Skin no rashes. Neuro: He is alert and oriented x3. No focal deficits. LAB: From today, bilirubin is up to 40. INR 1.9, BUN 100, creatinine 3.85. WBC 11.9, hemoglobin 11.5, platelets are 99,000. AST 182, ALT 119, alkaline phosphatase 139. IMPRESSION: 1. Acute severe alcoholic hepatitis diagnosed about 3 weeks ago, treated with prednisone for 2 weeks with no improvement in his bilirubin and hence was discontinued. Presently, his LFTs are gradually worsening. 2. Hepatic encephalopathy. Under control with lactulose and Xifaxan. 3. Acute renal failure, possible hepatorenal syndrome. Diuretics have been on hold for 6 days, and with gentle IV hydration, his BUN and creatinine are not improving. Nephrology following the patient closely. RECOMMENDATIONS: I had a lengthy discussion with the patient as well as his at the bedside today. The patient has been abstinent from alcohol for 3 weeks now. He will be transferred to [facility] to be evaluated for possible liver transplantation in case his condition continues to worsen. Thank you for this consultation. MMODL / IJN: [id number] /
--- NOTE | 2017-10-06 19:49 | PN ---
PROGRESS NOTE DATE OF SERVICE: 10/01/2017. Patient is being followed for an acute kidney injury, possibly hepatorenal syndrome. He is currently sitting up in bed. Family is present at bedside. We are waiting for possible transfer to tertiary care hospital. EXAMINATION: Blood pressure was 133/69, heart rate 66 per minute. He is afebrile. HEART: S1, S2. LUNGS: Decreased breath sounds at bases. Patient is deeply jaundiced. ABDOMEN: Soft, distended, obese with ascites. Lower extremities show edema 1+ bilaterally. LABS: Show sodium 133, potassium 3.7, BUN 100, serum creatinine 3.85. ASSESSMENT: 1. Acute kidney injury associated with liver cirrhosis, initially prerenal; currently, possibly hepatorenal. Urine output has improved. Renal function remains quite impaired with creatinine at about 3.7-3.8 mg/dL. 2. Alcoholic liver disease with severe hyperbilirubinemia and bilirubin of 40.1. 3. Recurring ascites. 4. Nonobstructing right nephrolithiasis. PLAN: Continue IV fluids. Recommend transfer to tertiary care center. MMODL / IJN: [id number] /
== END 2017-10-01 14:40 | disposition home or self-care (01) | DRG 432 ==
LOC: EC 11:32 → 4MS4W 13:27 → 5MS5E 13:55
PROVIDERS: ADMIT Hospitalist; ATTEND Hospitalist
PROC: 30233K1 Transfusion of Nonautologous Frozen Plasma into Peripheral Vein, Percutaneous Approach (ICD-10-PCS; 2017-09-26)
PROC: 0W9G3ZZ Drainage of Peritoneal Cavity, Percutaneous Approach (ICD-10-PCS; principal; 2017-09-28)
DX: K70.40 Alcoholic hepatic failure without coma (principal); K85.90 Acute pancreatitis without necrosis or infection, unspecified; K70.11 Alcoholic hepatitis with ascites; N17.9 Acute kidney failure, unspecified; I95.9 Hypotension, unspecified; D68.4 Acquired coagulation factor deficiency; D69.6 Thrombocytopenia, unspecified; E87.1 Hypo-osmolality and hyponatremia; E87.6 Hypokalemia; T50.1X5A Adverse effect of loop [high-ceiling] diuretics, initial encounter; K21.9 Gastro-esophageal reflux disease without esophagitis; I10 Essential (primary) hypertension; E11.9 Type 2 diabetes mellitus without complications; M19.90 Unspecified osteoarthritis, unspecified site; J30.9 Allergic rhinitis, unspecified; R06.2 Wheezing; J98.01 Acute bronchospasm; E66.9 Obesity, unspecified; K70.31 Alcoholic cirrhosis of liver with ascites; R19.7 Diarrhea, unspecified; N20.0 Calculus of kidney; Z68.35 Body mass index [BMI] 35.0-35.9, adult; Z85.528 Personal history of other malignant neoplasm of kidney; Z83.3 Family history of diabetes mellitus; Z87.891 Personal history of nicotine dependence; Z82.49 Family history of ischemic heart disease and other diseases of the circulatory system
CPT/HCPCS: 36415; 49083; 71046; 74176; 80053; 80320; 81001; 82042; 82105; 82140; 82150; 82272; 82570; 82945; 83690; 83735; 83880; 84300; 84484; 85025; 85027; 85610; 85730; 86850; 86870; 86880; 86900; 86901; 86902; 87070; 87075; 87205; 88108; 88305; 89050; 93005; 94640; 94760; 99285